=== PATIENT | female | born 1950 | race Native Hawaiian/Other Pacific Islander ===

== ENCOUNTER 2017-03-21 09:46 | Inpatient (IN) | payer BC, MEDICARE ==
[2017-03-21] MEDS ORDERED: Sodium Chloride 0.9% 500 ML IV ONE ×2 (09:56→10:01)
[2017-03-21 10:17] LABS: BASO % 0.3 % (0.0-2.0); HEMATOCRIT 41.6 % (34.0-47.0); LYMPH # 0.6 K/uL (1.0-4.3); LYMPH % 5.7 % (20.0-40.0); MEAN CELL VOLUME 88.8 fL (81.0-99.0); MEAN CORPUSCULAR HGB CONC 33.8 g/dL (33.0-37.0); MONO # 0.2 K/uL (0.0-0.8); MONO % 2.2 % (0.0-10.0); PLATELET COUNT 213 K/uL (130-400); RED CELL DISTRIBUTION WIDTH 12.9 % (11.5-14.5); WHITE BLOOD COUNT 10.2 K/uL (4.8-10.8)
[2017-03-21 10:26] LABS: CHLORIDE 102 mmol/L (98-107); POTASSIUM 3.5 mmol/L (3.6-5.2); SODIUM 137 mmol/L (132-148)
[2017-03-21 10:28] LABS: ALB/GLOB RATIO 1.5 (1.0-2.1); ALKALINE PHOSPHATASE 95 U/L (38-126); AST/SGOT 24 U/L (14-36); BILIRUBIN,TOTAL 1.2 mg/dL (0.2-1.3); BLOOD UREA NITROGEN 10 mg/dL (7-17); CARBON DIOXIDE 21 mmol/L (22-30); GFR AFRICAN-AMERICAN > 60; TOTAL PROTEIN 7.3 g/dL (6.3-8.3)
[2017-03-21 10:29] LABS: ALT/SGPT 27 U/L (9-52); CALCIUM 9.2 mg/dl (8.6-10.4); GLUCOSE,RANDOM 123 mg/dL (65-105); MAGNESIUM 1.9 mg/dL (1.6-2.3); PHOSPHOROUS 2.6 mg/dL (2.5-4.5)
--- NOTE | 2017-03-21 10:34 | C.PDOC ---
History Of Present Illness 67 y/o female presents to ED with c/o generalized epigastric abdominal pain for 3 days. Patient reports that pain has been intermittent, comes and goes, but notes persistent pain since last night. As per triage, patient notes that pain is so sever that she becomes dizzy. Denies chest pain or SOB. Patient also reports vomiting and constipation, with no bowel movement for 2 days. Patient denies fever, chills, urinary symptoms, or other associated symptoms. Time Seen by Provider: 03/21/17 09:51 Chief Complaint (Nursing): Abdominal Pain History Per: Patient History/Exam Limitations: no limitations Onset/Duration Of Symptoms: Days, Persistent Current Symptoms Are (Timing): Still Present Location Of Pain/Discomfort: Epigastric Radiation Of Pain To:: None Quality Of Discomfort: "Pain" Associated Symptoms: Vomiting. denies: Fever, Chills, Diarrhea, Urinary Symptoms Recent travel outside of the [place]: No Abnormal Vaginal Bleeding: No Past Medical History Reviewed: Historical Data, Nursing Documentation, Vital Signs Vital Signs: Last Vital Signs Temp 98.7 F 03/21/17 12:44 Pulse 67 03/21/17 12:44 Resp 18 03/21/17 12:44 BP 149/67 03/21/17 12:44 Pulse Ox 100 03/21/17 12:44 - Medical History PMH: No Chronic Diseases Family History: States: Unknown Family Hx - Social History Hx Alcohol Use: No Hx Substance Use: No - Immunization History Hx Tetanus Toxoid Vaccination: No Hx Influenza Vaccination: No Hx Pneumococcal Vaccination: No Review Of Systems Except As Marked, All Systems Reviewed And Found Negative. Constitutional: Negative for: Fever, Chills Cardiovascular: Negative for: Chest Pain Respiratory: Negative for: Cough, Shortness of Breath, Wheezing Gastrointestinal: Positive for: Vomiting, Abdominal Pain, Constipation Genitourinary: Negative for: Dysuria, Hematuria Skin: Negative for: Rash Neurological: Negative for: Headache, Dizziness Physical Exam - Physical Exam Appears: Non-toxic, No Acute Distress Skin: Warm, Dry Head: Atraumatic, Normacephalic Oral Mucosa: Moist Chest: Symmetrical Cardiovascular: Rhythm Regular Respiratory: Normal Breath Sounds, No Rales, No Rhonchi, No Wheezing Gastrointestinal/Abdominal: Soft, Tenderness (left sided, scant), No Guarding, No Rebound Back: Normal Inspection, No CVA Tenderness Extremity: Normal ROM, Capillary Refill (< 2 sec.) Neurological/Psych: Oriented x3, Normal Speech, Normal Cognition ED Course And Treatment - Laboratory Results Result Diagrams: 03/21/17 10:14 03/21/17 10:14 ECG: Interpreted By Me ECG Rhythm: Sinus Rhythm Rate From EC (bpm) O2 Sat by Pulse Oximetry: 100 (RA) Pulse Ox Interpretation: Normal Medical Decision Making Medical Decision Making: CT abdomen/pelvis, EKG, labs ordered and reviewed. 1:07PM Ct shows "Ubdvrw-yu-lbzhbvbjyv dilated small bowel loops. Dilated small bowel loop at the right lower abdomen/right pelvis demonstrates feces sign. Findings suspicious for bowel obstruction. Differential diagnosis includes bowel ileus. No evidence of pneumatosis intestinalis. Trace of free fluid at the right abdomen. No CT evidence of cholecystitis pancreatitis or appendicitis." General surgery paged. Will admit to hospitalist (BHAVNA Bradley) for SBO vs ileus with gen sx on consult. Patient NPO. Disposition - Disposition Disposition: HOSPITALIZED Disposition Time: 13:08 Condition: FAIR - Clinical Impression Clinical Impression: SBO (small bowel obstruction) - Scribe Statement The provider has reviewed the documentation as recorded by the Scribe SM All medical record entries made by the Scribe were at my direction and personally dictated by me. I have reviewed the chart and agree that the record accurately reflects my personal performance of the history, physical exam, medical decision making, and the department course for this patient. I have also personally directed, reviewed, and agree with the discharge instructions and disposition.
[2017-03-21 10:50] LABS: NEUTROPHIL 94 % (50-75); TOTAL CELLS COUNTED 100
[2017-03-21] MEDS ORDERED: Iodixanol 320 MG/ML 100 ML BOTTLE IV ONE ×2 (11:33→11:43)
--- NOTE | 2017-03-21 12:26 | CT ---
PROCEDURE: CT Abdomen and Pelvis with contrast HISTORY: L abdominal pain, constipated and vomiting COMPARISON: None. TECHNIQUE: Contrast dose: 100 mL Visipaque 320. Axial and reformatted coronal and sagittal CT images of the abdomen and pelvis were obtained after IV contrast administration. No oral contrast was given. Radiation dose: Total exam DLP = 251.79 mGy-cm. This CT exam was performed using one or more of the following dose reduction techniques: Automated exposure control, adjustment of the mA and/or kV according to patient size, and/or use of iterative reconstruction technique. FINDINGS: LOWER THORAX: Unremarkable. LIVER: Unremarkable. No gross lesion or ductal dilatation. GALLBLADDER AND BILE DUCTS: Unremarkable. PANCREAS: Unremarkable. No gross lesion or ductal dilatation. SPLEEN: Unremarkable. ADRENALS: Unremarkable. No mass. KIDNEYS AND URETERS: Unremarkable. No hydronephrosis. No solid mass. VASCULATURE: Unremarkable. No aortic aneurysm. BOWEL: There are jafpvz-ip-ztmznodbnq dilated small-bowel loops in the abdomen and pelvis. There is moderately dilated small bowel loop at the right lower abdomen/ right pelvis demonstrate feces sign. The descending and sigmoid colon are partially collapse. Findings may represent bowel obstruction versus less likely bowel ileus. The stomach is not distended. No evidence of pneumatosis intestinalis. APPENDIX: The appendix is visualized. No definite CT evidence of appendicitis. PERITONEUM: There is a trace amount of free fluid in the right abdomen. No evidence of free air. LYMPH NODES: Unremarkable. No enlarged lymph nodes. BLADDER: Unremarkable. REPRODUCTIVE: Unremarkable. BONES: No acute fracture. OTHER FINDINGS: None. IMPRESSION: Fabuma-fl-yroavkcobe dilated small bowel loops. Dilated small bowel loop at the right lower abdomen/right pelvis demonstrates feces sign. Findings suspicious for bowel obstruction. Differential diagnosis includes bowel ileus. No evidence of pneumatosis intestinalis. Trace of free fluid at the right abdomen. No CT evidence of cholecystitis pancreatitis or appendicitis.
[2017-03-21] MEDS ORDERED: Sodium Chloride 0.9% 1,000 ML IV SCH (12:45)
[2017-03-21] MEDS ORDERED: Sodium Chloride 0.9% 1,000 ML ONE (12:49)
[2017-03-21] MEDS ORDERED: HYDROmorphone 0.5 mg/0.5 ml ISec IVP PRN (13:43)
--- NOTE | 2017-03-21 14:07 | CP.PCM.HP ---
History of Present Illness - History of Present Illness History of Present Illness: HPI: Patient is a 67 y/o female with PMH of unspecified autoimmune disease. Patient is c/o abdominal pressure and bloating that started a week ago. Patient says it was bearable until last night when it progressively worsened and became painful. Patient describes this pain as crampy and located in the epigastric area. She says the pain has started to travel down lower involving the periumbilical and lower quadrants as well. Patient rates this pain as 6 out of 10 at its worst but currently has no pain. She thinks the pain has subsided because of the toradol she received in the ED. Patient says the pain was so bad this morning that she felt like she could not walk so she called for an ambulance. Patient says laying down flat makes the pain worse but nothing has made it better until now. She admits to associated nausea and vomiting. Patient says she has vomited 3-4x and describes it as a dark chocolate colored fluid without food. Patieint says she has had an appetite but she has been unable to keep food or liquids down. She says she usually has regular bowel movements but has not had a BM in 2 days. Patient also admits to what she thinks is a low grade fever. She says her temperature at home was 99.5 and she was having chills. Patient admits to associated diaphoresis, weakness, dizziness, and SOB. She denies headache, changes in vision/hearing, sore throat , dysphagia, chest pain, palpitations, cough, hematemesis, diarrhea, hematochezia, dyuria, frequency, leg pain/swelling, back pain, recent travel/ illness/sick contacts, and change in weight. PMH: unspecified autoimmune disease Meds: Multivitamin PSH: colonoscopy Allergies: PCN (reaction: palpitations), seasonal FamHx: HTN (father), colon cancer (paternal aunt) SocHx: * Denies tobacco, alcohol, or drug use * Lives at home * Retired computer education teacher for [employer] * Full code * Health care proxy: Ciarra Greenberg (sister); [phone] Present on Admission - Present on Admission Any Indicators Present on Admission: No Review of Systems - Review of Systems All systems: reviewed and no additional remarkable complaints except (as per HPI ) Past Patient History - Past Social History Smoking Status: Never Smoked - PSYCHIATRIC Hx Substance Use: No - SURGICAL HISTORY Hx Surgeries: No - ANESTHESIA Hx Anesthesia: No Meds Allergies/Adverse Reactions: Allergies Allergy/AdvReac Type Severity Reaction Status Date / Time Penicillins Allergy SHORTNESS Verified 03/21/17 09:53 OF BREATH Physical Exam - Constitutional Appears: Non-toxic, No Acute Distress - Head Exam Head Exam: ATRAUMATIC, NORMAL INSPECTION - Eye Exam Eye Exam: EOMI, Normal appearance - ENT Exam ENT Exam: Mucous Membranes Moist, Normal Oropharynx - Neck Exam Neck exam: Negative for: Lymphadenopathy, Tenderness - Respiratory Exam Respiratory Exam: Clear to Auscultation Bilateral, NORMAL BREATHING PATTERN. absent: Accessory Muscle Use, Rales, Rhonchi, Wheezes, Respiratory Distress - Cardiovascular Exam Cardiovascular Exam: REGULAR RHYTHM, +S1, +S2. absent: Bradycardia, Tachycardia , Rubs, Systolic Murmur - GI/Abdominal Exam GI & Abdominal Exam: Hypoactive Bowel Sounds (b/l upper quadrant), Soft, Tenderness (LLQ ). absent: Distended, Guarding, Organomegaly, Rebound - Extremities Exam Extremities exam: Positive for: normal capillary refill, normal inspection, pedal pulses present. Negative for: pedal edema, tenderness Additional comments: Lateral deviation of b/l great toes at the MTP joint Abrasion of left LE anteriorly (2/2 recent fall) - Back Exam Back exam: NORMAL INSPECTION. absent: paraspinal tenderness, rash noted, vertebral tenderness - Neurological Exam Neurological exam: Alert, Oriented x3 - Psychiatric Exam Psychiatric exam: Normal Affect, Normal Mood - Skin Skin Exam: Abrasion (LLE as stated above ), Dry, Intact, Normal Color, Warm Results - Vital Signs Recent Vital Signs: Last Vital Signs Temp 98.7 F 03/21/17 12:44 Pulse 67 03/21/17 12:44 Resp 18 03/21/17 12:44 BP 149/67 03/21/17 12:44 Pulse Ox 100 03/21/17 13:08 - Labs Result Diagrams: 03/21/17 10:14 03/21/17 10:14 Labs: Laboratory Results - last 24 hr 03/21/17 03/21/17 10:14 10:14 WBC 10.2 RBC 4.69 Hgb 14.0 Hct 41.6 MCV 88.8 D MCH 30.0 MCHC 33.8 RDW 12.9 Plt Count 213 MPV 9.0 Neut % (Auto) 91.8 H Lymph % (Auto) 5.7 L Talbot % (Auto) 2.2 Eos % (Auto) 0.0 Baso % (Auto) 0.3 Neut # 9.3 H Lymph # 0.6 L Talbot # 0.2 Eos # 0.0 Baso # 0.0 Neutrophils % (Manual) 94 H Lymphocytes % (Manual) 6 L Monocytes % (Manual) TEST NOT PERFORMED Platelet Estimate Normal RBC Morphology Normal Sodium 137 Potassium 3.5 L Chloride 102 Carbon Dioxide 21 L Anion Gap 18 BUN 10 Creatinine 0.5 L Est GFR ( Amer) > 60 Est GFR (Non-Af Amer) > 60 Random Glucose 123 H Calcium 9.2 Phosphorus 2.6 Magnesium 1.9 Total Bilirubin 1.2 AST 24 ALT 27 Alkaline Phosphatase 95 Total Protein 7.3 Albumin 4.4 Globulin 2.9 Albumin/Globulin Ratio 1.5 Lipase 79 Assessment & Plan - Assessment and Plan (Free Text) Assessment: Abdominal pain * CT abdomen and pelvis: mild/moderate dilated loops of small bowel, trace free fluid in right abdomen; SBO vs ileus * Surgery consulted (Dr. Aviles) - recs appreciated * NPO until passes flatus * No surgical intervention or NG tube needed at this time * f/u procal * GI consulted (Scot) - recs appreciated * NS + KCl 40 mEq @ 100/hr * f/u potassium in AM (3.5 upon admission) * Dilaudid 0.5 mg PRN severe pain * Toradol 30 mg PRN moderate pain * Lipase: 79 Hx unspecified autoimmune disease * followed by PMD (Dr. Javy Bradley) PPX * DVT risk score: 1 * SCDs * Hold heparin * Protonix 40 mg IV QD
--- NOTE | 2017-03-21 18:04 | CP.PCM.CON ---
<Je Beckham - Last Filed: 03/21/17 17:56> History of Present Illness - History of Present Illness History of Present Illness: General Surgery: Dr Aviles Patient is 67F w/ no significant PMH. Pt presents to ED with 24 hours of diffuse abdominal pain accompanied by nausea and vomiting. Pt reports pain started yesterday afternoon, mainly in bilateral upper quadrants. Since admission pain has resolved, and pt has not had emesis since yesterday. Reports has not had bowel movement for 2 days, but was passing flatus yesterday. CT read as SBO vs ileus PMH: unspecified autoimmune disease PSH: colonoscopy Allergies: PCN Review of Systems - Review of Systems All systems: reviewed and no additional remarkable complaints except (as per hpi ) - Constitutional Constitutional: absent: Chills, Weakness Past Patient History - Past Medical History & Family History Past Medical History?: No - Past Social History Smoking Status: Never Smoked - MUSCULOSKELETAL/RHEUMATOLOGICAL Hx Falls: No - PSYCHIATRIC Hx Substance Use: No - SURGICAL HISTORY Hx Surgeries: No - ANESTHESIA Hx Anesthesia: No Meds Allergies/Adverse Reactions: Allergies Allergy/AdvReac Type Severity Reaction Status Date / Time Penicillins Allergy SHORTNESS Verified 03/21/17 09:53 OF BREATH - Medications Medications: Current Medications Hydromorphone HCl (Dilaudid) 0.5 mg IVP Q4H PRN PRN Reason: Pain, moderate (4-7) Potassium Chloride 40 meq/ (Sodium Chloride) 1,020 mls @ 100 mls/hr IV .[id number] NINFA Metronidazole (Flagyl) 500 mg in 100 mls @ 100 mls/hr IVPB Q8H NINFA Ciprofloxacin (Cipro 400mg/200ml Dsw) 400 mg in 200 mls @ 133 mls/hr IVPB Q12H NINFA Ketorolac Tromethamine (Toradol) 30 mg IVP Q6 PRN PRN Reason: Pain, moderate (4-7) Ketorolac Tromethamine (Toradol) 15 mg IVP Q6 PRN PRN Reason: Pain, Mild (1-3) Ondansetron HCl (Zofran Inj) 4 mg IVP Q6 PRN PRN Reason: Nausea/Vomiting Pantoprazole Sodium (Protonix Inj) 40 mg IVP DAILY NINFA Physical Exam - Constitutional Appears: Non-toxic, No Acute Distress - Eye Exam Eye Exam: Normal appearance - ENT Exam ENT Exam: Mucous Membranes Moist - Respiratory Exam Respiratory Exam: absent: Accessory Muscle Use, Respiratory Distress - Cardiovascular Exam Cardiovascular Exam: REGULAR RHYTHM. absent: Tachycardia - GI/Abdominal Exam GI & Abdominal Exam: Normal Bowel Sounds, Soft. absent: Distended, Firm, Guarding, Hernia, Tenderness - Extremities Exam Extremities exam: Negative for: pedal edema - Neurological Exam Neurological exam: Alert, Oriented x3 - Psychiatric Exam Psychiatric exam: Normal Affect, Normal Mood - Skin Skin Exam: Normal Color Results - Vital Signs Recent Vital Signs: Last Vital Signs Temp 98.7 F 03/21/17 15:00 Pulse 89 03/21/17 15:00 Resp 20 03/21/17 15:24 BP 152/73 H 03/21/17 15:00 Pulse Ox 97 03/21/17 15:00 - Labs Result Diagrams: 03/21/17 10:14 03/21/17 10:14 Labs: Laboratory Results - last 24 hr 03/21/17 03/21/17 03/21/17 10:14 10:14 16:50 WBC 10.2 RBC 4.69 Hgb 14.0 Hct 41.6 MCV 88.8 D MCH 30.0 MCHC 33.8 RDW 12.9 Plt Count 213 MPV 9.0 Neut % (Auto) 91.8 H Lymph % (Auto) 5.7 L Person % (Auto) 2.2 Eos % (Auto) 0.0 Baso % (Auto) 0.3 Neut # 9.3 H Lymph # 0.6 L Person # 0.2 Eos # 0.0 Baso # 0.0 Neutrophils % (Manual) 94 H Lymphocytes % (Manual) 6 L Monocytes % (Manual) TEST NOT PERFORMED Platelet Estimate Normal RBC Morphology Normal Sodium 137 Potassium 3.5 L Chloride 102 Carbon Dioxide 21 L Anion Gap 18 BUN 10 Creatinine 0.5 L Est GFR ( Amer) > 60 Est GFR (Non-Af Amer) > 60 Random Glucose 123 H Calcium 9.2 Phosphorus 2.6 Magnesium 1.9 Total Bilirubin 1.2 AST 24 ALT 27 Alkaline Phosphatase 95 Total Protein 7.3 Albumin 4.4 Globulin 2.9 Albumin/Globulin Ratio 1.5 Lipase 79 Procalcitonin < 0.05 L Assessment & Plan - Assessment and Plan (Free Text) Assessment: 67F admitted for abdominal pain and SBO; resolving Plan: NPo IV fluids abx no NGT needed, will place if vomits await flatus then start CLD d/w Dr Traci Beckham, PGY3 <Mannie Aviles - Last Filed: 03/21/17 21:20> Meds - Medications Medications: Current Medications Hydromorphone HCl (Dilaudid) 0.5 mg IVP Q4H PRN PRN Reason: Pain, moderate (4-7) Potassium Chloride 40 meq/ (Sodium Chloride) 1,020 mls @ 100 mls/hr IV .[id number] [facility] TO [facility] Last Admin: 03/21/17 15:00 Dose: 100 mls/hr Metronidazole (Flagyl) 500 mg in 100 mls @ 100 mls/hr IVPB Q8H [facility] Last Admin: 03/21/17 19:03 Dose: 100 mls/hr Ciprofloxacin (Cipro 400mg/200ml Dsw) 400 mg in 200 mls @ 133 mls/hr IVPB Q12H [facility] Last Admin: 03/21/17 20:21 Dose: 133 mls/hr Ketorolac Tromethamine (Toradol) 30 mg IVP Q6 PRN PRN Reason: Pain, moderate (4-7) Ketorolac Tromethamine (Toradol) 15 mg IVP Q6 PRN PRN Reason: Pain, Mild (1-3) Ondansetron HCl (Zofran Inj) 4 mg IVP Q6 PRN PRN Reason: Nausea/Vomiting Pantoprazole Sodium (Protonix Inj) 40 mg IVP DAILY [facility] Results - Vital Signs Recent Vital Signs: Last Vital Signs Temp 98.7 F 03/21/17 15:00 Pulse 89 03/21/17 15:00 Resp 20 03/21/17 15:24 BP 152/73 H 03/21/17 15:00 Pulse Ox 97 03/21/17 15:00 - Labs Result Diagrams: 03/21/17 10:14 03/21/17 10:14 Labs: Laboratory Results - last 24 hr 03/21/17 03/21/17 03/21/17 10:14 10:14 16:50 WBC 10.2 RBC 4.69 Hgb 14.0 Hct 41.6 MCV 88.8 D MCH 30.0 MCHC 33.8 RDW 12.9 Plt Count 213 MPV 9.0 Neut % (Auto) 91.8 H Lymph % (Auto) 5.7 L Person % (Auto) 2.2 Eos % (Auto) 0.0 Baso % (Auto) 0.3 Neut # 9.3 H Lymph # 0.6 L Person # 0.2 Eos # 0.0 Baso # 0.0 Neutrophils % (Manual) 94 H Lymphocytes % (Manual) 6 L Monocytes % (Manual) TEST NOT PERFORMED Platelet Estimate Normal RBC Morphology Normal Sodium 137 Potassium 3.5 L Chloride 102 Carbon Dioxide 21 L Anion Gap 18 BUN 10 Creatinine 0.5 L Est GFR ( Amer) > 60 Est GFR (Non-Af Amer) > 60 Random Glucose 123 H Calcium 9.2 Phosphorus 2.6 Magnesium 1.9 Total Bilirubin 1.2 AST 24 ALT 27 Alkaline Phosphatase 95 Total Protein 7.3 Albumin 4.4 Globulin 2.9 Albumin/Globulin Ratio 1.5 Lipase 79 Procalcitonin < 0.05 L Attending/Attestation - Attestation I have personally seen and examined this patient.: Yes I have fully participated in the care of the patient.: Yes I have reviewed all pertinent clinical information: Yes Notes (Text): 03/21/17 21:17 Pt was seen and examined at bedside Agree with above note and assessment Pt with SBO most likely due to Enteritis Mid abdominal tenderness Labs and Radiology reviewed Start IV antibiotics Sips of clearas Serial abdominal exam We will f.u. Plan d.w pt in detail Risk and benefit explained in detail.
[2017-03-21] MEDS ORDERED: Ciprofloxacin 400mg/200ml D5W 400 MG/200 ML BAG IVPB SCH (18:30)
[2017-03-21] MEDS: metroNIDAZOLE IV 500 mg/100 ml 500 MG/100 ML BAG IVPB SCH (19:03)
--- NOTE | 2017-03-21 19:25 | CP.PCM.CON ---
History of Present Illness - History of Present Illness History of Present Illness: This is a 67 year old woman with abdominal pain. Patient states that she developed upper abdominal bloating/discomfort four or five days prior to admission. The bloating did not change or worsen until the day prior to admission, when the sensation became painful, described as "cramping and pressure" and constant. She was nauseated and vomited four times , each time after trying to eat or drink something.. She carson reports sweating profusely, but her temperature was only 99.5 degrees F. She denies having heartburn, difficulty swallowing, recent loss of appetite or loss of weight. Her last bowel movement was two days ago and was normal. She has not had constipation or rectal bleeding in the recent past. Her last colonoscopy was eight years ago and was normal. In the ER, CT scan was performed and showed dilated loops of small bowel suspicious for obstruction. Review of Systems - Constitutional Constitutional: Night Sweats. absent: Chills, Fever - Cardiovascular Cardiovascular: absent: Chest Pain - Respiratory Respiratory: absent: Cough, Dyspnea, Wheezing - Gastrointestinal Gastrointestinal: Abdominal Pain, Nausea, Vomiting. absent: Diarrhea, Dysphagia , Heartburn, Hematochezia - Genitourinary Genitourinary: absent: Dysuria, Hematuria - Integumentary Integumentary: absent: Rash - Neurological Neurological: absent: Dizziness, Headaches Past Patient History - Past Medical History & Family History Past Medical History?: No - Past Social History Smoking Status: Never Smoked - MUSCULOSKELETAL/RHEUMATOLOGICAL Hx Falls: No - PSYCHIATRIC Hx Substance Use: No - SURGICAL HISTORY Hx Surgeries: No - ANESTHESIA Hx Anesthesia: No Meds Allergies/Adverse Reactions: Allergies Allergy/AdvReac Type Severity Reaction Status Date / Time Penicillins Allergy SHORTNESS Verified 03/21/17 09:53 OF BREATH - Medications Medications: Current Medications Hydromorphone HCl (Dilaudid) 0.5 mg IVP Q4H PRN PRN Reason: Pain, moderate (4-7) Potassium Chloride 40 meq/ (Sodium Chloride) 1,020 mls @ 100 mls/hr IV .[id number] [facility] [place] Last Admin: 03/21/17 15:00 Dose: 100 mls/hr Metronidazole (Flagyl) 500 mg in 100 mls @ 100 mls/hr IVPB Q8H [facility] [place] Last Admin: 03/21/17 19:03 Dose: 100 mls/hr Ciprofloxacin (Cipro 400mg/200ml Dsw) 400 mg in 200 mls @ 133 mls/hr IVPB Q12H [facility] [place] Ketorolac Tromethamine (Toradol) 30 mg IVP Q6 PRN PRN Reason: Pain, moderate (4-7) Ketorolac Tromethamine (Toradol) 15 mg IVP Q6 PRN PRN Reason: Pain, Mild (1-3) Ondansetron HCl (Zofran Inj) 4 mg IVP Q6 PRN PRN Reason: Nausea/Vomiting Pantoprazole Sodium (Protonix Inj) 40 mg IVP DAILY [facility] [place] Physical Exam - Head Exam Head Exam: ATRAUMATIC, NORMOCEPHALIC - Eye Exam Eye Exam: EOMI, PERRL - Neck Exam Neck exam: Negative for: Lymphadenopathy, Thyromegaly - Respiratory Exam Respiratory Exam: absent: Rales, Rhonchi, Wheezes, NORMAL BREATHING PATTERN - Cardiovascular Exam Cardiovascular Exam: REGULAR RHYTHM, +S1, +S2. absent: Gallop, Rubs, Systolic Murmur - GI/Abdominal Exam GI & Abdominal Exam: Normal Bowel Sounds, Soft, Tenderness. absent: Mass, Organomegaly - Rectal Exam Rectal Exam: Deferred Additional comments: Mild tenderness to direct palpation in LLQ without rebound or guarding - Extremities Exam Extremities exam: Negative for: calf tenderness, pedal edema Results - Vital Signs Recent Vital Signs: Last Vital Signs Temp 98.7 F 03/21/17 15:00 Pulse 89 03/21/17 15:00 Resp 20 03/21/17 15:24 BP 152/73 H 03/21/17 15:00 Pulse Ox 97 03/21/17 15:00 - Labs Result Diagrams: 03/21/17 10:14 03/21/17 10:14 Labs: Laboratory Results - last 24 hr 03/21/17 03/21/17 03/21/17 10:14 10:14 16:50 WBC 10.2 RBC 4.69 Hgb 14.0 Hct 41.6 MCV 88.8 D MCH 30.0 MCHC 33.8 RDW 12.9 Plt Count 213 MPV 9.0 Neut % (Auto) 91.8 H Lymph % (Auto) 5.7 L Ross % (Auto) 2.2 Eos % (Auto) 0.0 Baso % (Auto) 0.3 Neut # 9.3 H Lymph # 0.6 L Ross # 0.2 Eos # 0.0 Baso # 0.0 Neutrophils % (Manual) 94 H Lymphocytes % (Manual) 6 L Monocytes % (Manual) TEST NOT PERFORMED Platelet Estimate Normal RBC Morphology Normal Sodium 137 Potassium 3.5 L Chloride 102 Carbon Dioxide 21 L Anion Gap 18 BUN 10 Creatinine 0.5 L Est GFR ( Amer) > 60 Est GFR (Non-Af Amer) > 60 Random Glucose 123 H Calcium 9.2 Phosphorus 2.6 Magnesium 1.9 Total Bilirubin 1.2 AST 24 ALT 27 Alkaline Phosphatase 95 Total Protein 7.3 Albumin 4.4 Globulin 2.9 Albumin/Globulin Ratio 1.5 Lipase 79 Procalcitonin < 0.05 L Assessment & Plan (1) Abdominal pain Assessment and Plan: Patient presents with abdominal pain, CT consistent with SBO but no history of abdominal surgery and no obvious hernias. Will check obstructive series in AM. Consider CT enterography or CT with oral contrast. Status: Acute
[2017-03-21] MEDS: Ciprofloxacin 400mg/200ml D5W 400 MG/200 ML BAG IVPB SCH (20:21)
--- NOTE | 2017-03-22 01:11 | CARD ---
APPROVED REPORT EKG Measurement Heart [id number] <Conclusion> Normal sinus rhythm Possible Left atrial enlargement Borderline ECG
[2017-03-22] MEDS: metroNIDAZOLE IV 500 mg/100 ml 500 MG/100 ML BAG IVPB SCH ×3 (02:31→17:39)
[2017-03-22 08:04] LABS: BASO % 0.3 % (0.0-2.0); EOS % 0.6 % (0.0-4.0); HEMATOCRIT 36.7 % (34.0-47.0); LYMPH # 0.9 K/uL (1.0-4.3); LYMPH % 13.4 % (20.0-40.0); MEAN CELL VOLUME 90.4 fL (81.0-99.0); MEAN CORPUSCULAR HEMOGLOBIN 30.9 pg (27.0-31.0); MEAN CORPUSCULAR HGB CONC 34.2 g/dL (33.0-37.0); MEAN PLATELET VOLUME 9.5 fL (7.2-11.7); MONO # 0.5 K/uL (0.0-0.8); MONO % 8.4 % (0.0-10.0); RED CELL DISTRIBUTION WIDTH 13.4 % (11.5-14.5); WHITE BLOOD COUNT 6.3 K/uL (4.8-10.8)
[2017-03-22 08:21] LABS: CHLORIDE 107 mmol/L (98-107); POTASSIUM 4.5 mmol/L (3.6-5.2); SODIUM 142 mmol/L (132-148)
[2017-03-22 08:23] LABS: GFR AFRICAN-AMERICAN > 60
[2017-03-22 08:24] LABS: ALKALINE PHOSPHATASE 70 U/L (38-126); ALT/SGPT 28 U/L (9-52); AST/SGOT 25 U/L (14-36); BILIRUBIN,TOTAL 1.2 mg/dL (0.2-1.3); BLOOD UREA NITROGEN 10 mg/dL (7-17); CALCIUM 8.7 mg/dl (8.6-10.4); CARBON DIOXIDE 26 mmol/L (22-30); GLUCOSE,RANDOM 85 mg/dL (65-105); TOTAL PROTEIN 5.9 g/dL (6.3-8.3)
[2017-03-22 08:37] LABS: ALB/GLOB RATIO 1.3 (1.0-2.1)
[2017-03-22] MEDS: Ciprofloxacin 400mg/200ml D5W 400 MG/200 ML BAG IVPB SCH ×2 (08:50→19:35)
--- NOTE | 2017-03-22 13:31 | CP.PCM.PN ---
<Kasia Green - Last Filed: 03/22/17 18:22> Subjective - Date & Time of Evaluation Date of Evaluation: 03/22/17 Time of Evaluation: 13:28 - Subjective Subjective: Patient seen and examined at bedside. Patient doing well today with no new complaints at this time. Patient says her abdominal cramping has come back today but is not as bad as it was before. She rates it as a 4 or 5 out of 10. Patient says the pain is intermittent and will last about 3-4 minutes then go away. She says this happens about 2-3x/hour. Patient says she passed flatus this morning but has not had a bowel movement yet. Patient says she thought the GI doctor told he she would get an xray of her abdomen this morning but says she has not had one yet. Patient denies fever, chills, vomiting, chest pain, SOB , and extremity pain/swelling. Objective - Vital Signs/Intake and Output Vital Signs (last 24 hours): Temp Pulse Resp BP Pulse Ox 98.6 F 66 20 161/75 H 97 03/22/17 00:00 03/22/17 00:00 03/22/17 00:00 03/22/17 00:00 03/22/17 00:00 Intake and Output: 03/22/17 03/22/17 06:59 18:59 Intake Total 800 Balance 800 - Medications Medications: Current Medications Hydromorphone HCl (Dilaudid) 0.5 mg IVP Q4H PRN PRN Reason: Pain, moderate (4-7) Potassium Chloride 40 meq/ (Sodium Chloride) 1,020 mls @ 100 mls/hr IV .[id number] [facility] Last Admin: 03/22/17 11:57 Dose: Not Given Metronidazole (Flagyl) 500 mg in 100 mls @ 100 mls/hr IVPB Q8H [facility] Last Admin: 03/22/17 10:43 Dose: 100 mls/hr Ciprofloxacin (Cipro 400mg/200ml Dsw) 400 mg in 200 mls @ 133 mls/hr IVPB Q12H [facility] Last Admin: 03/22/17 08:50 Dose: 133 mls/hr Ketorolac Tromethamine (Toradol) 30 mg IVP Q6 PRN PRN Reason: Pain, moderate (4-7) Ketorolac Tromethamine (Toradol) 15 mg IVP Q6 PRN PRN Reason: Pain, Mild (1-3) Ondansetron HCl (Zofran Inj) 4 mg IVP Q6 PRN PRN Reason: Nausea/Vomiting Pantoprazole Sodium (Protonix Inj) 40 mg IVP DAILY [facility] Last Admin: 03/22/17 08:59 Dose: 40 mg - Labs Labs: 03/22/17 07:50 03/22/17 07:50 - Additional Findings Additional findings: - Constitutional Appears: Non-toxic, No Acute Distress - Head Exam Head Exam: ATRAUMATIC, NORMAL INSPECTION - Eye Exam Eye Exam: EOMI, Normal appearance - ENT Exam ENT Exam: Mucous Membranes Moist, Normal Oropharynx - Neck Exam Neck exam: Negative for: Lymphadenopathy, Tenderness - Respiratory Exam Respiratory Exam: Clear to Auscultation Bilateral, NORMAL BREATHING PATTERN. absent: Accessory Muscle Use, Rales, Rhonchi, Wheezes, Respiratory Distress - Cardiovascular Exam Cardiovascular Exam: REGULAR RHYTHM, +S1, +S2. absent: Bradycardia, Tachycardia , Rubs, Systolic Murmur - GI/Abdominal Exam GI & Abdominal Exam: Normal active bowel Sounds, Soft, Tenderness (LLQ ). absent: Distended, Guarding, Organomegaly, Rebound - Extremities Exam Extremities exam: Positive for: normal capillary refill, normal inspection, pedal pulses present. Negative for: pedal edema, tenderness Additional comments: Lateral deviation of b/l great toes at the MTP joint Abrasion of left LE anteriorly (2/2 recent fall) - Back Exam Back exam: NORMAL INSPECTION. absent: paraspinal tenderness, rash noted, vertebral tenderness - Neurological Exam Neurological exam: Alert, Oriented x3 - Psychiatric Exam Psychiatric exam: Normal Affect, Normal Mood - Skin Skin Exam: Abrasion (LLE as stated above ), Dry, Intact, Normal Color, Warm Assessment and Plan - Assessment and Plan (Free Text) Assessment: Abdominal pain * CT abdomen and pelvis: mild/moderate dilated loops of small bowel, trace free fluid in right abdomen; SBO vs ileus * Surgery consulted (Dr. Aviles) - recs appreciated * Advance diet to clear liquid diet once patient passing flatus * No surgical intervention or NG tube needed at this time; will place NG tube if vomiting * procal: 0.05 * Likely SBO due to enteritis * Cipro 400 IV Q12 * Flagyl 500 mg IV Q8 * GI consulted ([facility]) - recs appreciated * consider obstructive series * consider CT enterography or CT with oral contrast * NS + KCl 40 mEq @ 100/hr * Potassium 3.5 upon admission; normalized to 4.5 on 03/22 * Dilaudid 0.5 mg PRN severe pain * Toradol 30 mg Q6 PRN moderate pain * Toradol 15 mg Q6 PRN mild pain * Lipase: 79 Hx unspecified autoimmune disease * followed by PMD (Dr. Javy Bradley) PPX * DVT risk score: 1 * SCDs * Hold heparin * Protonix 40 mg IV QD <Rashaun Bradley - Last Filed: 03/22/17 20:04> Objective - Vital Signs/Intake and Output Vital Signs (last 24 hours): Temp Pulse Resp BP Pulse Ox 98.6 F 64 20 138/71 99 03/22/17 15:00 03/22/17 15:00 03/22/17 15:00 03/22/17 15:00 03/22/17 15:00 - Medications Medications: Current Medications Hydromorphone HCl (Dilaudid) 0.5 mg IVP Q4H PRN PRN Reason: Pain, moderate (4-7) Potassium Chloride 40 meq/ (Sodium Chloride) 1,020 mls @ 100 mls/hr IV .[id number] [facility] Last Admin: 03/22/17 11:57 Dose: Not Given Metronidazole (Flagyl) 500 mg in 100 mls @ 100 mls/hr IVPB Q8H [facility] Last Admin: 03/22/17 17:39 Dose: 100 mls/hr Ciprofloxacin (Cipro 400mg/200ml Dsw) 400 mg in 200 mls @ 133 mls/hr IVPB Q12H [facility] Last Admin: 03/22/17 19:35 Dose: 133 mls/hr Ketorolac Tromethamine (Toradol) 30 mg IVP Q6 PRN PRN Reason: Pain, moderate (4-7) Ketorolac Tromethamine (Toradol) 15 mg IVP Q6 PRN PRN Reason: Pain, Mild (1-3) Ondansetron HCl (Zofran Inj) 4 mg IVP Q6 PRN PRN Reason: Nausea/Vomiting Pantoprazole Sodium (Protonix Inj) 40 mg IVP DAILY [facility] Last Admin: 03/22/17 08:59 Dose: 40 mg - Labs Labs: 03/22/17 07:50 03/22/17 07:50 Attending/Attestation - Attestation I have personally seen and examined this patient.: Yes I have fully participated in the care of the patient.: Yes I have reviewed all pertinent clinical information, including history, physical exam and plan: Yes Notes (Text): 03/22/17 20:03 Patient was seen and examined at 6 PM 03/22/17. Exam, assessment and plan were thoroughly gone over with the resident Patient is tolerating clear liquid diet. She is passing gas. Consider Obstruction Series if there is NO continued improvement. Rashaun Bradley D.O.
--- NOTE | 2017-03-22 13:35 | CP.PCM.PN ---
Subjective - Date & Time of Evaluation Date of Evaluation: 03/22/17 Time of Evaluation: 13:32 - Subjective Subjective: COVERING DR COREY Reports passing some flatus today. Still with discomfort but no N/V. No stool. Surgical consult pending. No further Xray done today per patient Objective - Vital Signs/Intake and Output Vital Signs (last 24 hours): Temp Pulse Resp BP Pulse Ox 98.6 F 66 20 161/75 H 97 03/22/17 00:00 03/22/17 00:00 03/22/17 00:00 03/22/17 00:00 03/22/17 00:00 Intake and Output: 03/22/17 03/22/17 06:59 18:59 Intake Total 800 Balance 800 - Medications Medications: Current Medications Hydromorphone HCl (Dilaudid) 0.5 mg IVP Q4H PRN PRN Reason: Pain, moderate (4-7) Potassium Chloride 40 meq/ (Sodium Chloride) 1,020 mls @ 100 mls/hr IV .[id number] [facility] Last Admin: 03/22/17 11:57 Dose: Not Given Metronidazole (Flagyl) 500 mg in 100 mls @ 100 mls/hr IVPB Q8H [facility] Last Admin: 03/22/17 10:43 Dose: 100 mls/hr Ciprofloxacin (Cipro 400mg/200ml Dsw) 400 mg in 200 mls @ 133 mls/hr IVPB Q12H [facility] Last Admin: 03/22/17 08:50 Dose: 133 mls/hr Ketorolac Tromethamine (Toradol) 30 mg IVP Q6 PRN PRN Reason: Pain, moderate (4-7) Ketorolac Tromethamine (Toradol) 15 mg IVP Q6 PRN PRN Reason: Pain, Mild (1-3) Ondansetron HCl (Zofran Inj) 4 mg IVP Q6 PRN PRN Reason: Nausea/Vomiting Pantoprazole Sodium (Protonix Inj) 40 mg IVP DAILY [facility] Last Admin: 03/22/17 08:59 Dose: 40 mg - Labs Labs: 03/22/17 07:50 03/22/17 07:50 - Head Exam Head Exam: NORMAL INSPECTION - Eye Exam Eye Exam: EOMI, PERRL - Respiratory Exam Respiratory Exam: NORMAL BREATHING PATTERN - Cardiovascular Exam Cardiovascular Exam: REGULAR RHYTHM - GI/Abdominal Exam GI & Abdominal Exam: Soft, Hyperactive Bowel Sounds. absent: Guarding, Rigid, Tenderness, Mass, Organomegaly, Rebound Assessment and Plan - Assessment and Plan (Free Text) Assessment: Abdominal pain associated with dilated loops of bowel on Xray yesterday r/o partial SBO, ileus Surgical consult pending Repeat KUB ordered Trial of clear liquids pending surgical evaluation.
--- NOTE | 2017-03-22 23:40 | CP.PCM.PN ---
<Jeniffer Hinkle - Last Filed: 03/22/17 23:38> Subjective - Date & Time of Evaluation Date of Evaluation: 03/22/17 Time of Evaluation: 07:00 - Subjective Subjective: GENERAL SURGERY PROGRESS NOTE FOR DR. AVILES Patient seen and examined at bedside. She reports that she passed some flatus. She has not had a bowel movement yet. She is hungry and denies nausea or vomiting. She reports some mild cramps in her lower abdomen that occur 2-3 times an hour and resolve after a couple minutes. Objective - Vital Signs/Intake and Output Vital Signs (last 24 hours): Temp Pulse Resp BP Pulse Ox 98.6 F 64 20 138/71 99 03/22/17 15:00 03/22/17 15:00 03/22/17 15:00 03/22/17 15:00 03/22/17 15:00 Intake and Output: 03/22/17 03/23/17 18:59 06:59 Intake Total 1300 Output Total 600 Balance 700 - Medications Medications: Current Medications Hydromorphone HCl (Dilaudid) 0.5 mg IVP Q4H PRN PRN Reason: Pain, moderate (4-7) Potassium Chloride 40 meq/ (Sodium Chloride) 1,020 mls @ 100 mls/hr IV .[id number] [facility] Last Admin: 03/22/17 22:06 Dose: 100 mls/hr Metronidazole (Flagyl) 500 mg in 100 mls @ 100 mls/hr IVPB Q8H [facility] Last Admin: 03/22/17 17:39 Dose: 100 mls/hr Ciprofloxacin (Cipro 400mg/200ml Dsw) 400 mg in 200 mls @ 133 mls/hr IVPB Q12H [facility] Last Admin: 03/22/17 19:35 Dose: 133 mls/hr Ketorolac Tromethamine (Toradol) 30 mg IVP Q6 PRN PRN Reason: Pain, moderate (4-7) Ketorolac Tromethamine (Toradol) 15 mg IVP Q6 PRN PRN Reason: Pain, Mild (1-3) Ondansetron HCl (Zofran Inj) 4 mg IVP Q6 PRN PRN Reason: Nausea/Vomiting Pantoprazole Sodium (Protonix Inj) 40 mg IVP DAILY [facility] Last Admin: 03/22/17 08:59 Dose: 40 mg - Labs Labs: 03/22/17 07:50 03/22/17 07:50 - Constitutional Appears: Non-toxic, No Acute Distress - Head Exam Head Exam: ATRAUMATIC, NORMAL INSPECTION - Eye Exam Eye Exam: EOMI, Normal appearance - Respiratory Exam Respiratory Exam: NORMAL BREATHING PATTERN. absent: Respiratory Distress - Cardiovascular Exam Cardiovascular Exam: +S1, +S2 - GI/Abdominal Exam GI & Abdominal Exam: Soft, Tenderness (very mild tenderness to lower abdomen). absent: Distended, Firm, Guarding, Rigid, Rebound - Neurological Exam Neurological Exam: Alert, Awake, Oriented x3 - Psychiatric Exam Psychiatric exam: Normal Affect, Normal Mood - Skin Skin Exam: Dry, Normal Color, Warm Assessment and Plan - Assessment and Plan (Free Text) Assessment: 67yo F with ileus vs partial SBO vs enteritis - Afebrile, VSS - Passed flatus - Advanced to full liquids - Will continue to monitor for bowel movement - Flat and upright X-ray ordered for tomorrow AM - Continue Abx - Discussed plan with Dr. Traci Hinkle PGY-3 <Mannie Aviles - Last Filed: 03/23/17 10:23> Objective - Vital Signs/Intake and Output Vital Signs (last 24 hours): Temp Pulse Resp BP Pulse Ox 98 F 59 L 21 154/78 H 100 03/23/17 08:00 03/23/17 08:00 03/23/17 08:00 03/23/17 08:00 03/23/17 08:00 Intake and Output: 03/23/17 03/23/17 06:59 18:59 Intake Total 2350 Output Total 1300 Balance 1050 - Medications Medications: Current Medications Docusate Sodium (Colace) 100 mg PO TID [facility] Last Admin: 03/23/17 09:53 Dose: 100 mg Hydromorphone HCl (Dilaudid) 0.5 mg IVP Q4H PRN PRN Reason: Pain, moderate (4-7) Potassium Chloride 40 meq/ (Sodium Chloride) 1,020 mls @ 100 mls/hr IV .[id number] [facility] Last Admin: 03/23/17 07:17 Dose: 100 mls/hr Metronidazole (Flagyl) 500 mg in 100 mls @ 100 mls/hr IVPB Q8H [facility] Last Admin: 03/23/17 09:53 Dose: 100 mls/hr Ciprofloxacin (Cipro 400mg/200ml Dsw) 400 mg in 200 mls @ 133 mls/hr IVPB Q12H [facility] Last Admin: 03/23/17 08:41 Dose: 133 mls/hr Ketorolac Tromethamine (Toradol) 30 mg IVP Q6 PRN PRN Reason: Pain, moderate (4-7) Ketorolac Tromethamine (Toradol) 15 mg IVP Q6 PRN PRN Reason: Pain, Mild (1-3) Ondansetron HCl (Zofran Inj) 4 mg IVP Q6 PRN PRN Reason: Nausea/Vomiting Pantoprazole Sodium (Protonix Inj) 40 mg IVP DAILY [facility] Last Admin: 03/23/17 09:53 Dose: 40 mg - Labs Labs: 03/23/17 07:25 03/23/17 07:25 Attending/Attestation - Attestation I have personally seen and examined this patient.: Yes I have fully participated in the care of the patient.: Yes I have reviewed all pertinent clinical information, including history, physical exam and plan: Yes Notes (Text): 03/23/17 10:22 Pt was seen and examined at bedside Agree with above note and assessment Pt with resolving SBO Abdomen: Soft, NT Full Liquid diet C.w IV antibiotics Plan d.w pt in detail Risk and benefit explained in detail.
[2017-03-23] MEDS: metroNIDAZOLE IV 500 mg/100 ml 500 MG/100 ML BAG IVPB SCH ×3 (03:00→17:41)
[2017-03-23 07:39] LABS: BASO % 0.6 % (0.0-2.0); EOS # 0.1 K/uL (0.0-0.7); EOS % 1.3 % (0.0-4.0); HEMATOCRIT 32.9 % (34.0-47.0); LYMPH # 1.1 K/uL (1.0-4.3); LYMPH % 26.5 % (20.0-40.0); MEAN CELL VOLUME 91.1 fL (81.0-99.0); MEAN CORPUSCULAR HEMOGLOBIN 30.5 pg (27.0-31.0); MEAN CORPUSCULAR HGB CONC 33.5 g/dL (33.0-37.0); MEAN PLATELET VOLUME 9.6 fL (7.2-11.7); MONO # 0.4 K/uL (0.0-0.8); MONO % 9.6 % (0.0-10.0); NRBC % 0.1 % (0.0-2.0); RED CELL DISTRIBUTION WIDTH 13.2 % (11.5-14.5); WHITE BLOOD COUNT 4.1 K/uL (4.8-10.8)
[2017-03-23 08:04] LABS: CHLORIDE 106 mmol/L (98-107); POTASSIUM 4.3 mmol/L (3.6-5.2); SODIUM 139 mmol/L (132-148)
[2017-03-23 08:06] LABS: BILIRUBIN,TOTAL 0.9 mg/dL (0.2-1.3); CARBON DIOXIDE 25 mmol/L (22-30); GFR AFRICAN-AMERICAN > 60
[2017-03-23 08:07] LABS: ALB/GLOB RATIO 1.3 (1.0-2.1); ALKALINE PHOSPHATASE 62 U/L (38-126); ALT/SGPT 29 U/L (9-52); AST/SGOT 22 U/L (14-36); BLOOD UREA NITROGEN 9 mg/dL (7-17); CALCIUM 8.5 mg/dl (8.6-10.4); GLUCOSE,RANDOM 74 mg/dL (65-105); MAGNESIUM 1.8 mg/dL (1.6-2.3); PHOSPHOROUS 3.2 mg/dL (2.5-4.5); TOTAL PROTEIN 5.3 g/dL (6.3-8.3)
[2017-03-23] MEDS: Ciprofloxacin 400mg/200ml D5W 400 MG/200 ML BAG IVPB SCH ×2 (08:41→20:51)
--- NOTE | 2017-03-23 09:04 | RAD ---
Abdomen four views History: Abdominal pain. Evaluate for ileus and/or small bowel obstruction. Comparison: 03/21/2017 Findings: Persistent dilated loops of small bowel within the mid and lower abdomen. Moderate fecal retention throughout the colon. Degenerative changes in the spine and bilateral hips. Bibasilar breast and nipple shadows. Prominent rounded nodular densities at both lung bases likely represent nipple shadows. Diffuse increased interstitial lung markings. Heart size within normal limits. Impression: Nonspecific bowel gas pattern with dilated loops of small bowel seen within the mid and lower abdomen. Moderate fecal retention in the colon. These findings are nonspecific ; however, partial and or developing small bowel obstruction cannot entirely be excluded. Clinical correlation.
--- NOTE | 2017-03-23 09:43 | CP.PCM.PN ---
Subjective - Date & Time of Evaluation Date of Evaluation: 03/23/17 Time of Evaluation: 09:40 - Subjective Subjective: COVERING DR COREY No further pain or vomiting. Passing flatus but no stool. Repeat KUB shows no significant change Objective - Vital Signs/Intake and Output Vital Signs (last 24 hours): Temp Pulse Resp BP Pulse Ox 98 F 59 L 21 154/78 H 100 03/23/17 08:00 03/23/17 08:00 03/23/17 08:00 03/23/17 08:00 03/23/17 08:00 Intake and Output: 03/23/17 03/23/17 06:59 18:59 Intake Total 2350 Output Total 1300 Balance 1050 - Medications Medications: Current Medications Docusate Sodium (Colace) 100 mg PO TID [facility] Hydromorphone HCl (Dilaudid) 0.5 mg IVP Q4H PRN PRN Reason: Pain, moderate (4-7) Potassium Chloride 40 meq/ (Sodium Chloride) 1,020 mls @ 100 mls/hr IV .[id number] [facility] Last Admin: 03/23/17 07:17 Dose: 100 mls/hr Metronidazole (Flagyl) 500 mg in 100 mls @ 100 mls/hr IVPB Q8H [facility] Last Admin: 03/23/17 03:00 Dose: 100 mls/hr Ciprofloxacin (Cipro 400mg/200ml Dsw) 400 mg in 200 mls @ 133 mls/hr IVPB Q12H [facility] Last Admin: 03/23/17 08:41 Dose: 133 mls/hr Ketorolac Tromethamine (Toradol) 30 mg IVP Q6 PRN PRN Reason: Pain, moderate (4-7) Ketorolac Tromethamine (Toradol) 15 mg IVP Q6 PRN PRN Reason: Pain, Mild (1-3) Ondansetron HCl (Zofran Inj) 4 mg IVP Q6 PRN PRN Reason: Nausea/Vomiting Pantoprazole Sodium (Protonix Inj) 40 mg IVP DAILY [facility] Last Admin: 03/22/17 08:59 Dose: 40 mg - Labs Labs: 03/23/17 07:25 03/23/17 07:25 - Constitutional Appears: No Acute Distress - Head Exam Head Exam: ATRAUMATIC, NORMOCEPHALIC - Eye Exam Eye Exam: EOMI, PERRL - Respiratory Exam Respiratory Exam: NORMAL BREATHING PATTERN - Cardiovascular Exam Cardiovascular Exam: REGULAR RHYTHM - GI/Abdominal Exam GI & Abdominal Exam: Soft, Normal Bowel Sounds. absent: Distended, Tenderness, Mass, Rebound - Extremities Exam Extremities Exam: Normal Inspection Assessment and Plan (1) Constipation Assessment & Plan: Still no stool though passing flatus Consider Dulcolax supp or enema if ok with surgical team. Status: Acute (2) Abdominal pain Assessment & Plan: Resolved at present Status: Acute (3) SBO (small bowel obstruction) Assessment & Plan: Clinically improving but no bowel movement as of yet, passing flatus. Surgical followup . Status: Acute
--- NOTE | 2017-03-23 10:43 | CP.PCM.PN ---
<Kasia Green - Last Filed: 03/23/17 10:39> Subjective - Date & Time of Evaluation Date of Evaluation: 03/23/17 Time of Evaluation: 10:39 - Subjective Subjective: Patient seen and examined at bedside. Patient doing well today with no new complaints at this time. Patient says she is having pressure in her lower abdomen but it does not feel like cramping as before. Patient says she is still passing flatus but has not had a bowel movement yet. She says she feels like she needs to have a BM but has not been able to. Patient has been ambulating trying to help with this. Patient denies fever, chills, vomiting, chest pain, SOB, and extremity pain/swelling. Objective - Vital Signs/Intake and Output Vital Signs (last 24 hours): Temp Pulse Resp BP Pulse Ox 98 F 59 L 21 154/78 H 100 03/23/17 08:00 03/23/17 08:00 03/23/17 08:00 03/23/17 08:00 03/23/17 08:00 Intake and Output: 03/23/17 03/23/17 06:59 18:59 Intake Total 2350 Output Total 1300 Balance 1050 - Medications Medications: Current Medications Docusate Sodium (Colace) 100 mg PO TID [facility] Last Admin: 03/23/17 09:53 Dose: 100 mg Hydromorphone HCl (Dilaudid) 0.5 mg IVP Q4H PRN PRN Reason: Pain, moderate (4-7) Potassium Chloride 40 meq/ (Sodium Chloride) 1,020 mls @ 100 mls/hr IV .[id number] [facility] Last Admin: 03/23/17 07:17 Dose: 100 mls/hr Metronidazole (Flagyl) 500 mg in 100 mls @ 100 mls/hr IVPB Q8H [facility] Last Admin: 03/23/17 09:53 Dose: 100 mls/hr Ciprofloxacin (Cipro 400mg/200ml Dsw) 400 mg in 200 mls @ 133 mls/hr IVPB Q12H [facility] Last Admin: 03/23/17 08:41 Dose: 133 mls/hr Ketorolac Tromethamine (Toradol) 30 mg IVP Q6 PRN PRN Reason: Pain, moderate (4-7) Ketorolac Tromethamine (Toradol) 15 mg IVP Q6 PRN PRN Reason: Pain, Mild (1-3) Ondansetron HCl (Zofran Inj) 4 mg IVP Q6 PRN PRN Reason: Nausea/Vomiting Pantoprazole Sodium (Protonix Inj) 40 mg IVP DAILY [facility] Last Admin: 03/23/17 09:53 Dose: 40 mg - Labs Labs: 03/23/17 07:25 03/23/17 07:25 - Additional Findings Additional findings: - Constitutional Appears: Non-toxic, No Acute Distress - Head Exam Head Exam: ATRAUMATIC, NORMAL INSPECTION - Eye Exam Eye Exam: EOMI, Normal appearance - ENT Exam ENT Exam: Mucous Membranes Moist, Normal Oropharynx - Neck Exam Neck exam: Negative for: Lymphadenopathy, Tenderness - Respiratory Exam Respiratory Exam: Clear to Auscultation Bilateral, NORMAL BREATHING PATTERN. absent: Accessory Muscle Use, Rales, Rhonchi, Wheezes, Respiratory Distress - Cardiovascular Exam Cardiovascular Exam: REGULAR RHYTHM, +S1, +S2. absent: Bradycardia, Tachycardia , Rubs, Systolic Murmur - GI/Abdominal Exam GI & Abdominal Exam: Normal active bowel Sounds, Soft. absent: Distended, Tenderness, Guarding, Organomegaly, Rebound - Extremities Exam Extremities exam: Positive for: normal capillary refill, normal inspection, pedal pulses present. Negative for: pedal edema, tenderness Additional comments: Lateral deviation of b/l great toes at the MTP joint - Back Exam Back exam: NORMAL INSPECTION. absent: paraspinal tenderness, rash noted, vertebral tenderness - Neurological Exam Neurological exam: Alert, Oriented x3 - Psychiatric Exam Psychiatric exam: Normal Affect, Normal Mood - Skin Skin Exam: Dry, Intact, Normal Color, Warm Assessment and Plan - Assessment and Plan (Free Text) Assessment: Abdominal pain * CT abdomen and pelvis: mild/moderate dilated loops of small bowel, trace free fluid in right abdomen; SBO vs ileus * Surgery consulted (Dr. Aviles) - recs appreciated * Advanced diet to clear liquid diet - patient passing flatus * No surgical intervention or NG tube needed at this time; will place NG tube if vomiting * procal: 0.05 * Likely SBO due to enteritis * Cipro 400 IV Q12 * Flagyl 500 mg IV Q8 * GI consulted ([facility]) - recs appreciated * obstructive series: Nonspecific bowel gas pattern with dilated loops of small bowel seen within the mid and lower abdomen. Moderate fecal retention in the colon. These findings are nonspecific ; however, partial and or developing small bowel obstruction cannot entirely be excluded. * consider CT enterography or CT with oral contrast * NS + KCl 40 mEq @ 100/hr * Potassium 3.5 upon admission; normalized to 4.5 on 03/22 * Dilaudid 0.5 mg PRN severe pain * Toradol 30 mg Q6 PRN moderate pain * Toradol 15 mg Q6 PRN mild pain * Colace 100 mg PO TID * Lipase: 79 Hx unspecified autoimmune disease * followed by PMD (Dr. Javy Bradley) PPX * DVT risk score: 1 * SCDs * Hold heparin * Protonix 40 mg IV QD <Rashaun Bradley - Last Filed: 03/23/17 21:06> Objective - Vital Signs/Intake and Output Vital Signs (last 24 hours): Temp Pulse Resp BP Pulse Ox 98.6 F 62 20 165/74 H 99 03/23/17 16:00 03/23/17 16:00 03/23/17 16:00 03/23/17 16:00 03/23/17 16:00 Intake and Output: 03/23/17 03/24/17 18:59 06:59 Intake Total 700 Balance 700 - Medications Medications: Current Medications Docusate Sodium (Colace) 100 mg PO TID [facility] Last Admin: 03/23/17 17:41 Dose: 100 mg Hydromorphone HCl (Dilaudid) 0.5 mg IVP Q4H PRN PRN Reason: Pain, moderate (4-7) Potassium Chloride 40 meq/ (Sodium Chloride) 1,020 mls @ 100 mls/hr IV .[id number] [facility] Last Admin: 03/23/17 18:00 Dose: 100 mls/hr Metronidazole (Flagyl) 500 mg in 100 mls @ 100 mls/hr IVPB Q8H [facility] Last Admin: 03/23/17 17:41 Dose: 100 mls/hr Ciprofloxacin (Cipro 400mg/200ml Dsw) 400 mg in 200 mls @ 133 mls/hr IVPB Q12H [facility] Last Admin: 03/23/17 20:51 Dose: 133 mls/hr Ketorolac Tromethamine (Toradol) 30 mg IVP Q6 PRN PRN Reason: Pain, moderate (4-7) Ketorolac Tromethamine (Toradol) 15 mg IVP Q6 PRN PRN Reason: Pain, Mild (1-3) Ondansetron HCl (Zofran Inj) 4 mg IVP Q6 PRN PRN Reason: Nausea/Vomiting Pantoprazole Sodium (Protonix Inj) 40 mg IVP DAILY [facility] Last Admin: 03/23/17 09:53 Dose: 40 mg - Labs Labs: 03/23/17 07:25 03/23/17 07:25 Attending/Attestation - Attestation I have personally seen and examined this patient.: Yes I have fully participated in the care of the patient.: Yes I have reviewed all pertinent clinical information, including history, physical exam and plan: Yes Notes (Text): 03/23/17 20:59 Patient was seen and examined at 8:15 AM 03/23/17. Exam, assessment and plan were thoroughly gone over with the resident. At the time of initial exam, patient stated that she was tolerating her clear liquid diet and passing gas but still without bowel movement and was not nauseous. I re-examined patient at 8:45 PM and patient complained of bloating sensation and sensation that after eating she felt like the liquid was stuck in the epigastric area. She states that she is also no longer passing gas. Because of this she is afraid to eat. She did have pudding and oatmeal and she states that she may be lactose intolerant. I have asked her to drink and have only the clear liquids. Her repeat abdominal exam is completely normal/unremarkable and she is not in any distress. Recommend Medicine Team speak with Surgical Team and if ok with them, order Fleet Enema as the Colon has moderate amount of stool and this may help things move along, so to speak. Rashaun Bradley D.O.
--- NOTE | 2017-03-23 10:47 | CP.PCM.PN ---
Subjective - Date & Time of Evaluation Date of Evaluation: 03/23/17 Time of Evaluation: 07:00 - Subjective Subjective: General Surgery Dr. Aviles Pt S&E @bedside. NAEO. admits to decreased distension and abd pain. denies N/V. (+)Flatus, (-) BM. tolerating CLD Objective - Vital Signs/Intake and Output Vital Signs (last 24 hours): Temp Pulse Resp BP Pulse Ox 98 F 59 L 21 154/78 H 100 03/23/17 08:00 03/23/17 08:00 03/23/17 08:00 03/23/17 08:00 03/23/17 08:00 Intake and Output: 03/23/17 03/23/17 06:59 18:59 Intake Total 2350 Output Total 1300 Balance 1050 - Medications Medications: Current Medications Docusate Sodium (Colace) 100 mg PO TID [facility] Last Admin: 03/23/17 09:53 Dose: 100 mg Hydromorphone HCl (Dilaudid) 0.5 mg IVP Q4H PRN PRN Reason: Pain, moderate (4-7) Potassium Chloride 40 meq/ (Sodium Chloride) 1,020 mls @ 100 mls/hr IV .[id number] [facility] Last Admin: 03/23/17 07:17 Dose: 100 mls/hr Metronidazole (Flagyl) 500 mg in 100 mls @ 100 mls/hr IVPB Q8H [facility] Last Admin: 03/23/17 09:53 Dose: 100 mls/hr Ciprofloxacin (Cipro 400mg/200ml Dsw) 400 mg in 200 mls @ 133 mls/hr IVPB Q12H [facility] Last Admin: 03/23/17 08:41 Dose: 133 mls/hr Ketorolac Tromethamine (Toradol) 30 mg IVP Q6 PRN PRN Reason: Pain, moderate (4-7) Ketorolac Tromethamine (Toradol) 15 mg IVP Q6 PRN PRN Reason: Pain, Mild (1-3) Ondansetron HCl (Zofran Inj) 4 mg IVP Q6 PRN PRN Reason: Nausea/Vomiting Pantoprazole Sodium (Protonix Inj) 40 mg IVP DAILY [facility] Last Admin: 03/23/17 09:53 Dose: 40 mg - Labs Labs: 03/23/17 07:25 03/23/17 07:25 - Constitutional Appears: Non-toxic, No Acute Distress - Head Exam Head Exam: NORMAL INSPECTION - Eye Exam Eye Exam: Normal appearance - ENT Exam ENT Exam: Mucous Membranes Moist - Respiratory Exam Respiratory Exam: NORMAL BREATHING PATTERN. absent: Accessory Muscle Use, Respiratory Distress - GI/Abdominal Exam GI & Abdominal Exam: Soft. absent: Distended, Tenderness - Extremities Exam Extremities Exam: Normal Inspection - Neurological Exam Neurological Exam: Alert, Awake, Normal Gait, Oriented x3 - Psychiatric Exam Psychiatric exam: Normal Affect, Normal Mood - Skin Skin Exam: Dry, Intact, Normal Color, Warm Assessment and Plan - Assessment and Plan (Free Text) Assessment: 67 y/o F w/ partial SBO vs enteritis - resolving - cont CLD - monitor bowel fxn - Colace TID NINFA - advance diet once BM - non-narcotic pain management - cont medical management Pt discussed w/ Dr. Traci Gray DO PGY2
[2017-03-23 17:20] VITALS: RESP 20
[2017-03-24] MEDS: metroNIDAZOLE IV 500 mg/100 ml 500 MG/100 ML BAG IVPB SCH ×3 (02:04→17:29)
[2017-03-24 06:53] LABS: BASO % 0.6 % (0.0-2.0); EOS # 0.1 K/uL (0.0-0.7); EOS % 1.3 % (0.0-4.0); HEMATOCRIT 36.5 % (34.0-47.0); LYMPH # 0.9 K/uL (1.0-4.3); MEAN CELL VOLUME 89.7 fL (81.0-99.0); MEAN CORPUSCULAR HEMOGLOBIN 30.8 pg (27.0-31.0); MEAN CORPUSCULAR HGB CONC 34.3 g/dL (33.0-37.0); MEAN PLATELET VOLUME 9.7 fL (7.2-11.7); MONO # 0.4 K/uL (0.0-0.8); MONO % 10.8 % (0.0-10.0); NRBC % 0.1 % (0.0-2.0); RED CELL DISTRIBUTION WIDTH 13.1 % (11.5-14.5); WHITE BLOOD COUNT 4.2 K/uL (4.8-10.8)
[2017-03-24 07:50] LABS: CHLORIDE 105 mmol/L (98-107); POTASSIUM 4.3 mmol/L (3.6-5.2); SODIUM 139 mmol/L (132-148)
[2017-03-24 07:53] LABS: ALB/GLOB RATIO 1.5 (1.0-2.1); ALKALINE PHOSPHATASE 84 U/L (38-126); ALT/SGPT 40 U/L (9-52); AST/SGOT 47 U/L (14-36); BILIRUBIN,TOTAL 1.1 mg/dL (0.2-1.3); BLOOD UREA NITROGEN 7 mg/dL (7-17); CALCIUM 9.1 mg/dl (8.6-10.4); CARBON DIOXIDE 23 mmol/L (22-30); GFR AFRICAN-AMERICAN > 60; GLUCOSE,RANDOM 80 mg/dL (65-105); MAGNESIUM 1.8 mg/dL (1.6-2.3); PHOSPHOROUS 3.5 mg/dL (2.5-4.5); TOTAL PROTEIN 6.8 g/dL (6.3-8.3)
[2017-03-24] MEDS ORDERED: Mineral Oil Enema 135 ml RC ONE ×2 (08:27→18:00)
[2017-03-24] MEDS: Ciprofloxacin 400mg/200ml D5W 400 MG/200 ML BAG IVPB SCH ×3 (08:33→19:48)
--- NOTE | 2017-03-24 09:44 | CP.PCM.PN ---
Subjective - Date & Time of Evaluation Date of Evaluation: 03/24/17 Time of Evaluation: 09:42 - Subjective Subjective: Patient denies having nausea, vomiting, abdominal pain. She is passing flatus but has not had a bowel movement since adcmission. Objective - Vital Signs/Intake and Output Vital Signs (last 24 hours): Temp Pulse Resp BP Pulse Ox 98.1 F 68 20 176/79 H 99 03/24/17 09:16 03/24/17 09:16 03/24/17 09:16 03/24/17 09:16 03/24/17 09:16 Intake and Output: 03/24/17 03/24/17 06:59 18:59 Intake Total 1350 Output Total 600 Balance 750 - Medications Medications: Current Medications Docusate Sodium (Colace) 100 mg PO TID [facility] Last Admin: 03/24/17 09:33 Dose: 100 mg Potassium Chloride 40 meq/ (Sodium Chloride) 1,020 mls @ 100 mls/hr IV .[id number] [facility] Last Admin: 03/23/17 18:00 Dose: 100 mls/hr Metronidazole (Flagyl) 500 mg in 100 mls @ 100 mls/hr IVPB Q8H [facility] Last Admin: 03/24/17 02:04 Dose: 100 mls/hr Ciprofloxacin (Cipro 400mg/200ml Dsw) 400 mg in 200 mls @ 133 mls/hr IVPB Q12H [facility] Last Admin: 03/24/17 08:33 Dose: 133 mls/hr Ketorolac Tromethamine (Toradol) 15 mg IVP Q6 PRN PRN Reason: Pain, Mild (1-3) Ondansetron HCl (Zofran Inj) 4 mg IVP Q6 PRN PRN Reason: Nausea/Vomiting Pantoprazole Sodium (Protonix Inj) 40 mg IVP DAILY [facility] Last Admin: 03/24/17 09:33 Dose: 40 mg - Labs Labs: 03/24/17 06:43 03/24/17 06:43 - Head Exam Head Exam: ATRAUMATIC, NORMOCEPHALIC - Eye Exam Eye Exam: EOMI, PERRL - Neck Exam Neck Exam: absent: Lymphadenopathy, Thyromegaly - Respiratory Exam Respiratory Exam: NORMAL BREATHING PATTERN. absent: Rales, Rhonchi, Wheezes - Cardiovascular Exam Cardiovascular Exam: REGULAR RHYTHM, +S1, +S2. absent: Gallop, Rubs, Murmur - GI/Abdominal Exam GI & Abdominal Exam: Soft, Normal Bowel Sounds. absent: Tenderness, Mass, Organomegaly - Rectal Exam Rectal Exam: Deferred - Extremities Exam Extremities Exam: absent: Calf Tenderness, Pedal Edema Assessment and Plan (1) Abdominal pain Assessment & Plan: Abdominal pain has resolved. She is attempting to eat today. Consider discharge if she is able to tolerate regular diet. Status: Acute
[2017-03-24] MEDS ORDERED: Iohexol 240 (50 ml) PO ONE (12:00)
[2017-03-24] MEDS ORDERED: Iodixanol 320 mg/ml 150 ml Bottle IV ONE (13:36)
--- NOTE | 2017-03-24 15:23 | CT ---
PROCEDURE: CT Abdomen and Pelvis with contrast HISTORY: Follow up small bowel obstruction COMPARISON: None. TECHNIQUE: Contrast dose: 100 mL Visipaque 320 Radiation dose: Total exam DLP = 236.97 mGy-cm. This CT exam was performed using one or more of the following dose reduction techniques: Automated exposure control, adjustment of the mA and/or kV according to patient size, and/or use of iterative reconstruction technique. FINDINGS: LOWER THORAX: Unremarkable. LIVER: Unremarkable. No gross lesion or ductal dilatation. GALLBLADDER AND BILE DUCTS: Unremarkable. PANCREAS: Unremarkable. No gross lesion or ductal dilatation. SPLEEN: Unremarkable. ADRENALS: Mild bilateral adrenal hypertrophy. No adrenal mass. KIDNEYS AND URETERS: Unremarkable. No hydronephrosis. No solid mass. VASCULATURE: Unremarkable. No aortic aneurysm. BOWEL: Previously noted dilatation of small bowel has resolved. No evidence of bowel obstruction. No abnormal bowel loops. APPENDIX: Not identified. No secondary findings to suggest acute appendicitis. PERITONEUM: Unremarkable. No free fluid. No free air. LYMPH NODES: Unremarkable. No enlarged lymph nodes. BLADDER: Unremarkable. REPRODUCTIVE: Retroverted uterus. BONES: No evidence of fracture. Grade 1 anterolisthesis at L4-5. No spondylolysis. OTHER FINDINGS: None. IMPRESSION: No evidence of bowel obstruction. Additional minor findings as above.
--- NOTE | 2017-03-24 15:45 | RAD ---
PROCEDURE: Radiographs of the chest and abdomen (obstructive series) HISTORY: SBO (complains of abdominal heaviness/bloating) COMPARISON: No prior. TECHNIQUE: AP radiograph of the chest, with upright and supine radiographs of the abdomen. FINDINGS: CHEST: Lungs: Clear. Cardiovascular: Normal size heart. No pulmonary vascular congestion. Pleura: No pleural fluid. No pneumothorax. Other findings: None. ABDOMEN AND PELVIS: Bowel: Unremarkable bowel gas pattern. No evidence of mechanical obstruction. Free air: None. Bones: Unremarkable. Other findings: None. IMPRESSION: Unremarkable radiographs of chest and abdomen. No evidence of mechanical bowel obstruction.
--- NOTE | 2017-03-24 16:03 | CP.PCM.PN ---
<Marvin Phelps - Last Filed: 03/24/17 17:14> Subjective - Date & Time of Evaluation Date of Evaluation: 03/24/17 Time of Evaluation: 09:00 - Subjective Subjective: PGY [address] Beaulieu Patient seen and examined at bedside today. Patient was up walking around her room at the time of the examination. She reports tolerating a liquid diet, is passing flatus but has not had a BM. Patient is requesting if there is anything that can be given to help her go to the bathroom so she can go home. States her abdominal pain has gone away. Denies f/c, n/v, sob, cp or headaches. Objective - Vital Signs/Intake and Output Vital Signs (last 24 hours): Temp Pulse Resp BP Pulse Ox 98.1 F 68 20 176/79 H 99 03/24/17 09:16 03/24/17 09:16 03/24/17 09:16 03/24/17 09:16 03/24/17 09:16 Intake and Output: 03/24/17 03/24/17 06:59 18:59 Intake Total 1350 Output Total 600 Balance 750 - Medications Medications: Current Medications Docusate Sodium (Colace) 100 mg PO TID [facility] Last Admin: 03/24/17 14:35 Dose: 100 mg Heparin Sodium (Porcine) (Heparin) 5,000 units SC Q12 [facility] Metronidazole (Flagyl) 500 mg in 100 mls @ 100 mls/hr IVPB Q8H [facility] Last Admin: 03/24/17 10:58 Dose: 100 mls/hr Ciprofloxacin (Cipro 400mg/200ml Dsw) 400 mg in 200 mls @ 133 mls/hr IVPB Q12H [facility] Last Admin: 03/24/17 08:33 Dose: 133 mls/hr Ondansetron HCl (Zofran Inj) 4 mg IVP Q6 PRN PRN Reason: Nausea/Vomiting Pantoprazole Sodium (Protonix Inj) 40 mg IVP DAILY [facility] Last Admin: 03/24/17 09:33 Dose: 40 mg - Labs Labs: 03/24/17 06:43 03/24/17 06:43 - Constitutional Appears: Non-toxic, No Acute Distress - Head Exam Head Exam: ATRAUMATIC, NORMOCEPHALIC - Eye Exam Eye Exam: EOMI, Normal appearance - ENT Exam ENT Exam: Mucous Membranes Moist - Respiratory Exam Respiratory Exam: Clear to Ausculation Bilateral, NORMAL BREATHING PATTERN. absent: Accessory Muscle Use, Respiratory Distress - Cardiovascular Exam Cardiovascular Exam: REGULAR RHYTHM, +S1, +S2 - GI/Abdominal Exam GI & Abdominal Exam: Soft, Normal Bowel Sounds. absent: Distended, Firm, Guarding, Rigid, Tenderness - Extremities Exam Extremities Exam: absent: Calf Tenderness, Pedal Edema, Tenderness - Neurological Exam Neurological Exam: Alert, Awake, CN II-XII Intact, Oriented x3. absent: Motor Sensory Deficit - Psychiatric Exam Psychiatric exam: Normal Affect, Normal Mood - Skin Skin Exam: Dry, Intact, Normal Color, Warm Assessment and Plan - Assessment and Plan (Free Text) Assessment: Abdominal pain * CT Abd w/IV and PO contrast 03/24: No evidence of bowel obstruction. * CT abdomen and pelvis 03/21: mild/moderate dilated loops of small bowel, trace free fluid in right abdomen; SBO vs ileus * Surgery consulted (Dr. Aviles) - recs appreciated * No surgical intervention or NG tube needed at this time; will place NG tube if vomiting * procal: 0.05 * Likely SBO due to enteritis * Cipro 400 IV Q12 * Flagyl 500 mg IV Q8 * GI consulted ([facility]) - recs appreciated * obstructive series: Nonspecific bowel gas pattern with dilated loops of small bowel seen within the mid and lower abdomen. Moderate fecal retention in the colon. These findings are nonspecific ; however, partial and or developing small bowel obstruction cannot entirely be excluded. * Did not want fleet enema given today. Will observe patient one more night. * NS + KCl 40 mEq @ 100/hr * Potassium 3.5 upon admission; normalized to 4.5 on 03/22 * Dilaudid 0.5 mg PRN severe pain * Toradol 30 mg Q6 PRN moderate pain * Toradol 15 mg Q6 PRN mild pain * Colace 100 mg PO TID * Lipase: 79 Hx unspecified autoimmune disease * followed by PMD (Dr. Javy Bradley) PPX * DVT risk score: 1 - Patient is ambulating, seen walking around halls. * SCDs * Hold heparin * Protonix 40 mg IV QD Case discussed with Dr. Brittnee Wong Mattie PGY1 <Zuleyma Beaulieu V - Last Filed: 03/24/17 19:54> Objective - Vital Signs/Intake and Output Vital Signs (last 24 hours): Temp Pulse Resp BP Pulse Ox 98.8 F 63 20 135/68 100 03/24/17 15:00 03/24/17 15:00 03/24/17 15:00 03/24/17 15:00 03/24/17 15:00 Intake and Output: 03/24/17 03/25/17 18:59 06:59 Intake Total 1200 Balance 1200 - Medications Medications: Current Medications Docusate Sodium (Colace) 100 mg PO TID [facility] Last Admin: 03/24/17 17:29 Dose: 100 mg Heparin Sodium (Porcine) (Heparin) 5,000 units SC Q12 [facility] Metronidazole (Flagyl) 500 mg in 100 mls @ 100 mls/hr IVPB Q8H [facility] Last Admin: 03/24/17 17:29 Dose: 100 mls/hr Ciprofloxacin (Cipro 400mg/200ml Dsw) 400 mg in 200 mls @ 133 mls/hr IVPB Q12H [facility] Last Admin: 03/24/17 08:33 Dose: 133 mls/hr Ondansetron HCl (Zofran Inj) 4 mg IVP Q6 PRN PRN Reason: Nausea/Vomiting Pantoprazole Sodium (Protonix Inj) 40 mg IVP DAILY [facility] Last Admin: 03/24/17 09:33 Dose: 40 mg - Labs Labs: 03/24/17 06:43 03/24/17 06:43 Attending/Attestation - Attestation I have personally seen and examined this patient.: Yes I have fully participated in the care of the patient.: Yes I have reviewed all pertinent clinical information, including history, physical exam and plan: Yes Notes (Text): Patient seen, examined, and case discussed with day-time resident. Patient seen during morning rounds. Patient reporting she is having flatus but has not have bowel movement. Educated patient regarding maintain diet high in fiber to prevent constipation such as prune, papaya, pear, pineapple, supplement foods she eats with Benefiber or Metamucil or use natural products such as Psyillum Husks to increase fiber intake. Patient's diet advanced to soft per conversation with the patient form liquids Patient's CT scan repeated by GI; No SBO observed. Patient had received Mineral enema this morning; received Fleet enema this evening. Discussed with evening nurse, if patient has bowel movement later tonight, patient may go home. Resident and osteopathic medical students discussed noninvasive soft tissue techniques (OMT) to help assist patient in encouraging bowel movement. Assessment/Plan 1) Abdominal pain Constipation Small Bowel Obstruction * CT Abd w/IV and PO contrast 03/24: No evidence of bowel obstruction. * CT abdomen and pelvis 03/21: mild/moderate dilated loops of small bowel, trace free fluid in right abdomen; SBO vs ileus * Abdominal Obstructive series 03/24/17: no evidence of mechanical bowel obstruction; Nonspecific gas pattern * Abdominal Obstructive series 03/23/17: nonspecific bowel gas pattern with dilated loops of small bowel seen within the mid and lower abdomen. Moderate fecal retention in the colon. nonspecific; however partial and small bowel obstruction * Surgery consulted (Dr. Aviles) - recs appreciated * No surgical intervention or NG tube needed at this time; will place NG tube if vomiting-->no vomitting, no nausea; patient wants a rosario diet * Cipro 400 IV Q12H and Flagyl 500 mg IV Q8H * GI consulted ([facility]) - recs appreciated * Abdominal Obstructive series 03/24/17: no evidence of mechanical bowel obstruction; Nonspecific gas pattern * Abdominal Obstructive series 03/23/17: nonspecific bowel gas pattern with dilated loops of small bowel seen within the mid and lower abdomen. Moderate fecal retention in the colon. nonspecific; however partial and small bowel obstruction * Dilaudid 0.5 mg PRN severe pain * Colace 100 mg PO TID * Lipase: 79 * 03/24: Given Mineral enema per surgery this morning; given fleet enema later this afternoon; will order for magnesium citrate if does not have bowel movement ; patient without bowel movement since 03/19/17 2) Leukopenia * While on IV abx; N# above 1.6 * per Uptodate, side effect of Flagyl is neutropenia; patient has been on Flagyl during hospitalization; is reversible. 3) PPX * DVT risk score: 1 - Patient is ambulating, seen walking around halls. * SCDs * Protonix 40 mg IV QDaily Disposition: If patient has bowel movement, patient may be discharged. Will need to follow-up with GI for outpatient colonoscopy. Medication reconciled if patient has bowel movement. Recommended for stool softeners and encourage fiber intake in diet
--- NOTE | 2017-03-24 16:31 | CP.PCM.PN ---
Subjective - Date & Time of Evaluation Date of Evaluation: 03/24/17 Time of Evaluation: 16:28 - Subjective Subjective: Gen Sx: Dr Aviles Pt S&e. NAEO. Tolerating liquid diet. Repeat CT ordered by GI shows no pathology. Passing flatus. No BM yet. Diet advanced to soft per primary. Denies pain, n/v Objective - Vital Signs/Intake and Output Vital Signs (last 24 hours): Temp Pulse Resp BP Pulse Ox 98.1 F 68 20 176/79 H 99 03/24/17 09:16 03/24/17 09:16 03/24/17 09:16 03/24/17 09:16 03/24/17 09:16 Intake and Output: 03/24/17 03/24/17 06:59 18:59 Intake Total 1350 1200 Output Total 600 Balance 750 1200 - Medications Medications: Current Medications Docusate Sodium (Colace) 100 mg PO TID [facility] Last Admin: 03/24/17 14:35 Dose: 100 mg Heparin Sodium (Porcine) (Heparin) 5,000 units SC Q12 [facility] Metronidazole (Flagyl) 500 mg in 100 mls @ 100 mls/hr IVPB Q8H [facility] Last Admin: 03/24/17 10:58 Dose: 100 mls/hr Ciprofloxacin (Cipro 400mg/200ml Dsw) 400 mg in 200 mls @ 133 mls/hr IVPB Q12H [facility] Last Admin: 03/24/17 08:33 Dose: 133 mls/hr Ondansetron HCl (Zofran Inj) 4 mg IVP Q6 PRN PRN Reason: Nausea/Vomiting Pantoprazole Sodium (Protonix Inj) 40 mg IVP DAILY [facility] Last Admin: 03/24/17 09:33 Dose: 40 mg - Labs Labs: 03/24/17 06:43 03/24/17 06:43 - Constitutional Appears: Non-toxic, No Acute Distress - Respiratory Exam Respiratory Exam: absent: Accessory Muscle Use, Respiratory Distress - Cardiovascular Exam Cardiovascular Exam: REGULAR RHYTHM - GI/Abdominal Exam GI & Abdominal Exam: Soft. absent: Distended, Tenderness Assessment and Plan - Assessment and Plan (Free Text) Assessment: 67F admitted for sbo; resolving Plan: pt on regular diet now denies pain, nausea or vomiting clear for D/C once has BM recommend outpatient colonoscopy d/w Dr Traci Beckham, PGY3
[2017-03-24 16:57] VITALS: BP 135/68; PULSE 63; TEMP 98.8; O2SAT 100
[2017-03-24] MEDS ORDERED: Magnesium Citrate Oral SOL (300 ml) PO ONE (18:28)
[2017-03-24] MEDS ORDERED: Pneumococcal 23-Valent Vaccine IM ONE (19:07)
--- NOTE | 2017-03-25 18:39 | CP.PCM.DIS ---
Provider - Provider Date of Admission: 03/21/17 12:38 Attending physician: Zuleyma Beaulieu DO Time Spent in preparation of Discharge (in minutes): 20 Hospital Course - Lab Results Lab Results: Most Recent Lab Values WBC 4.2 K/uL (4.8-10.8) L 03/24/17 06:43 RBC 4.07 Mil/uL (3.80-5.20) 03/24/17 06:43 Hgb 12.5 g/dL (11.0-16.0) 03/24/17 06:43 Hct 36.5 % (34.0-47.0) 03/24/17 06:43 MCV 89.7 fL (81.0-99.0) 03/24/17 06:43 MCH 30.8 pg (27.0-31.0) 03/24/17 06:43 MCHC 34.3 g/dL (33.0-37.0) 03/24/17 06:43 RDW 13.1 % (11.5-14.5) 03/24/17 06:43 Plt Count 191 K/uL (130-400) 03/24/17 06:43 MPV 9.7 fL (7.2-11.7) 03/24/17 06:43 Neut % (Auto) 65.3 % (50.0-75.0) 03/24/17 06:43 Lymph % (Auto) 22.0 % (20.0-40.0) 03/24/17 06:43 [place] % (Auto) 10.8 % (0.0-10.0) H 03/24/17 06:43 Eos % (Auto) 1.3 % (0.0-4.0) 03/24/17 06:43 Baso % (Auto) 0.6 % (0.0-2.0) 03/24/17 06:43 Neut # 2.7 K/uL (1.8-7.0) 03/24/17 06:43 Lymph # 0.9 K/uL (1.0-4.3) L 03/24/17 06:43 [place] # 0.4 K/uL (0.0-0.8) 03/24/17 06:43 Eos # 0.1 K/uL (0.0-0.7) 03/24/17 06:43 Baso # 0.0 K/uL (0.0-0.2) 03/24/17 06:43 Neutrophils % (Manual) 94 % (50-75) H 03/21/17 10:14 Lymphocytes % (Manual) 6 % (20-40) L 03/21/17 10:14 Monocytes % (Manual) TEST NOT PERFORMED 03/21/17 10:14 Platelet Estimate Normal (NORMAL) 03/21/17 10:14 RBC Morphology Normal 03/21/17 10:14 Sodium 139 mmol/L (132-148) 03/24/17 06:43 Potassium 4.3 mmol/L (3.6-5.2) 03/24/17 06:43 Chloride 105 mmol/L (98-107) 03/24/17 06:43 Carbon Dioxide 23 mmol/L (22-30) 03/24/17 06:43 Anion Gap 16 (10-20) 03/24/17 06:43 BUN 7 mg/dL (7-17) 03/24/17 06:43 Creatinine 0.7 MG/DL (0.7-1.2) 03/24/17 06:43 Est GFR ( Amer) > 60 03/24/17 06:43 Est GFR (Non-Af Amer) > 60 03/24/17 06:43 Random Glucose 80 mg/dL (65-105) 03/24/17 06:43 Calcium 9.1 mg/dl (8.6-10.4) 03/24/17 06:43 Phosphorus 3.5 mg/dL (2.5-4.5) 03/24/17 06:43 Magnesium 1.8 mg/dL (1.6-2.3) 03/24/17 06:43 Total Bilirubin 1.1 mg/dL (0.2-1.3) 03/24/17 06:43 AST 47 U/L (14-36) H D 03/24/17 06:43 ALT 40 U/L (9-52) 03/24/17 06:43 Alkaline Phosphatase 84 U/L (38-126) 03/24/17 06:43 Total Protein 6.8 g/dL (6.3-8.3) 03/24/17 06:43 Albumin 4.1 g/dL (3.5-5.0) 03/24/17 06:43 Globulin 2.7 gm/dL (2.2-3.9) 03/24/17 06:43 Albumin/Globulin Ratio 1.5 (1.0-2.1) 03/24/17 06:43 Lipase 79 U/L (23-300) 03/21/17 10:14 Procalcitonin < 0.05 NG/ML (0.19-0.49) L 03/21/17 16:50 Discharge Exam - Head Exam Head Exam: ATRAUMATIC, NORMOCEPHALIC Discharge Plan - Discharge Medications Prescriptions: Docusate [Colace] 100 mg PO TID #90 cap - Follow Up Plan Condition: FAIR Disposition: HOME/ ROUTINE Instructions: Bowel Obstruction (DC)
== END 2017-03-24 20:59 | disposition home or self-care (01) | DRG 390 ==
LOC: C.ER 09:46 → C.9E 12:38 → C.3T 13:24
PROVIDERS: ADMIT Hospitalist; ATTEND Hospitalist
DX: K56.60 Unspecified intestinal obstruction (principal); D72.819 Decreased white blood cell count, unspecified; K52.9 Noninfective gastroenteritis and colitis, unspecified; Z88.0 Allergy status to penicillin

== ENCOUNTER 2017-03-26 22:27 | Inpatient (IN) | payer MEDICARE ==
[2017-03-26] MEDS ORDERED: Sodium Chloride 0.9% 1,000 ML IV ONE (22:59)
--- NOTE | 2017-03-26 22:59 | C.PDOC ---
History Of Present Illness Patient presents to the ED with complaints of abdominal pain, bloating, and nausea since yesterday. Patient was seen in ED yesterday and had work up performed to rule out small bowel obstruction versus Ileus. Patient was able to tolerate PO and discharged home but symptoms worsened. She had one episode of vomiting in ED and denies fever or chills. Time Seen by Provider: 03/26/17 22:59 Chief Complaint (Nursing): Abdominal Pain History Per: Patient History/Exam Limitations: no limitations Onset/Duration Of Symptoms: Days, Worse Since (today ) Current Symptoms Are (Timing): Still Present Severity: Mild Pain Scale Rating Of: 4 Location Of Pain/Discomfort: Diffuse Radiation Of Pain To:: None Quality Of Discomfort: "Pain" Associated Symptoms: Vomiting. denies: Fever, Chills Exacerbating Factors: None Alleviating Factors: None Recent travel outside of the [place]: No Additional History Per: Prior Records Abnormal Vaginal Bleeding: No Past Medical History Reviewed: Historical Data, Nursing Documentation, Vital Signs Vital Signs: Last Vital Signs Temp 98.0 F 03/26/17 22:53 Pulse 71 03/26/17 22:53 Resp 18 03/26/17 22:53 BP 186/85 H 03/27/17 02:00 Pulse Ox 100 03/27/17 03:36 Family History: States: Unknown Family Hx - Social History Hx Alcohol Use: No Hx Substance Use: No - Immunization History Hx Tetanus Toxoid Vaccination: No Hx Influenza Vaccination: No Hx Pneumococcal Vaccination: No Review Of Systems Constitutional: Negative for: Fever, Chills Cardiovascular: Negative for: Chest Pain Respiratory: Negative for: Cough, Shortness of Breath Gastrointestinal: Positive for: Vomiting, Abdominal Pain. Negative for: Diarrhea Physical Exam - Physical Exam Appears: Non-toxic, No Acute Distress Skin: Warm, Dry Oral Mucosa: Moist Neck: Supple Chest: Symmetrical, No Deformity Cardiovascular: Rhythm Regular, No Murmur Respiratory: No Rales, No Rhonchi, No Wheezing Gastrointestinal/Abdominal: Soft, Tenderness (diffuse mild tenderness), No Distention, No Guarding, No Rebound, Other (Tympanic to percussion) Extremity: Normal ROM, No Tenderness Neurological/Psych: Oriented x3 ED Course And Treatment - Laboratory Results Result Diagrams: 03/26/17 23:32 03/27/17 00:03 O2 Sat by Pulse Oximetry: 100 (RA) Pulse Ox Interpretation: Normal - Radiology CXR: Interpreted by Me, Viewed By Me CXR Interpretation: No: Infiltrates, Fracture, Pnemothorax - Other Rad obstr X-Ray: Interpreted by Me, Viewed By Me Interpretation: lots of stool, contrast. no obstr or free air Progress Note: 3:10 am pt resting comfortable. no further vomiting Disposition Discussed With Dr.: Yoan Bradley Comment: accepted the pt on his servic e and took over the care at 5:40 AM Doctor Will See Patient In The: Hospital Counseled Patient/Family Regarding: Studies Performed, Diagnosis - Disposition Disposition: HOME/ ROUTINE Disposition Time: 22:59 Condition: FAIR Forms: [facility] (Armenian) - POA Present On Arrival: None - Clinical Impression Clinical Impression: Abdominal pain, SBO (small bowel obstruction), Nausea, Vomiting - Scribe Statement The provider has reviewed the documentation as recorded by the Scribe Elisabet Glaser All medical record entries made by the Scribe were at my direction and personally dictated by me. I have reviewed the chart and agree that the record accurately reflects my personal performance of the history, physical exam, medical decision making, and the department course for this patient. I have also personally directed, reviewed, and agree with the discharge instructions and disposition. Decision To Admit - Pt Status Changed To: Hospital Disposition Of: Inpatient - Admit Certification Admit to Inpatient:: After my assessment, the patient will require hospitalization for at least two midnights. This is because of the severity of symptoms shown, intensity of services needed, and/or the medical risk in this patient being treated as an outpatient. - InPatient: Physician Admission Certification:: After my assessment, the patient will require hospitalization for at least two midnights. This is because of the severity of symptoms shown, intensity of services needed, and/or the medical risk in this patient being treated as an outpatient. - . Bed Request Type: Regular Admitting Physician: Yoan Bradley Patient Diagnosis: Abdominal pain, SBO (small bowel obstruction), Nausea, Vomiting
[2017-03-26 23:35] LABS: BASO % 0.2 % (0.0-2.0); EOS % 0.2 % (0.0-4.0); HEMATOCRIT 47.5 % (34.0-47.0); LYMPH # 0.6 K/uL (1.0-4.3); LYMPH % 8.3 % (20.0-40.0); MEAN CELL VOLUME 91.1 fL (81.0-99.0); MEAN CORPUSCULAR HEMOGLOBIN 30.3 pg (27.0-31.0); MEAN CORPUSCULAR HGB CONC 33.2 g/dL (33.0-37.0); MEAN PLATELET VOLUME 9.8 fL (7.2-11.7); MONO # 0.3 K/uL (0.0-0.8); MONO % 3.9 % (0.0-10.0); PLATELET COUNT 226 K/uL (130-400); RED CELL DISTRIBUTION WIDTH 13.3 % (11.5-14.5); WHITE BLOOD COUNT 7.7 K/uL (4.8-10.8)
[2017-03-27 00:18] LABS: ALB/GLOB RATIO 1.8 (1.0-2.1); ALKALINE PHOSPHATASE 73 U/L (38-126); ALT/SGPT 69 U/L (9-52); AST/SGOT 77 U/L (14-36); BILIRUBIN,TOTAL 0.7 mg/dL (0.2-1.3); BLOOD UREA NITROGEN 7 mg/dL (7-17); CALCIUM 8.5 mg/dl (8.6-10.4); CARBON DIOXIDE 19 mmol/L (22-30); CHLORIDE 101 mmol/L (98-107); GFR AFRICAN-AMERICAN > 60; GLUCOSE,RANDOM 95 mg/dL (65-105); POTASSIUM 3.7 mmol/L (3.6-5.2); SODIUM 134 mmol/L (132-148); TOTAL PROTEIN 6.2 g/dL (6.3-8.3)
[2017-03-27] MEDS ORDERED: Sodium Chloride 0.9% 1,000 ML ONE ×2 (00:21→02:01)
--- NOTE | 2017-03-27 01:02 | CP.PCM.CON ---
<Jeniffer Hinkle - Last Filed: 03/27/17 01:09> History of Present Illness - History of Present Illness History of Present Illness: GENERAL SURGERY CONSULT NOTE FOR DR. AVILES 67yo F with PMHx of autoimmune disease and recent admission for SBO presents to the ED with abdominal pain, bloating, and vomiting. She was discharged from the hospital on Friday night. She states that she was fine most of Friday with a few small bowel movements but that evening she "felt blocked". Friday morning , she had bloating and diffuse abdominal pain. She describes the pain as dull, pressure, bloating. She vomited once today. Her last flatus was this AM and her last BM was this AM and it was very small, soft and loose, with mucus. She denies blood. She also reports associated chills. She was previously admitted on 03/21/17 for SBO possibly secondary to enteritis which was treated conservatively with NPO, IV fluids and antibiotics. She was discharged home on 03/24/17 after having a bowel movement and a repeat CT on showed resolution of dilated small bowel. She was given a prescription for colace and recommended to have outpatient colonoscopy. PMHx: unspecified autoimmune disease Surgeries: colonoscopy Allergies: penicillins Review of Systems - Review of Systems All systems: reviewed and no additional remarkable complaints except (as per HPI ) Past Patient History - Infectious Disease Hx of Infectious Diseases: None - Past Medical History & Family History Past Medical History?: No - Past Social History Smoking Status: Never Smoked - CARDIAC Hx Cardiac Disorders: No - PULMONARY Hx Respiratory Disorders: No - NEUROLOGICAL Hx Neurological Disorder: No - HEENT Hx HEENT Problems: No - RENAL Hx Chronic Kidney Disease: No - ENDOCRINE/METABOLIC Hx Endocrine Disorders: No - HEMATOLOGICAL/ONCOLOGICAL Hx Blood Disorders: No - INTEGUMENTARY Hx Dermatological Problems: No - MUSCULOSKELETAL/RHEUMATOLOGICAL Hx Musculoskeletal Disorders: No Hx Falls: No - GASTROINTESTINAL Hx Gastrointestinal Disorders: No - GENITOURINARY/GYNECOLOGICAL Hx Genitourinary Disorders: No - PSYCHIATRIC Hx Substance Use: No - SURGICAL HISTORY Hx Surgeries: No - ANESTHESIA Hx Anesthesia: No Meds Allergies/Adverse Reactions: Allergies Allergy/AdvReac Type Severity Reaction Status Date / Time Penicillins Allergy SHORTNESS Verified 03/26/17 22:57 OF BREATH - Medications Medications: Current Medications Sodium Chloride (Sodium Chloride 0.9%) 1,000 mls @ 100 mls/hr IV .Q10H ONE Stop: 03/27/17 08:58 Last Admin: 03/27/17 00:23 Dose: 100 mls/hr Physical Exam - Constitutional Appears: Well, Non-toxic, No Acute Distress - Head Exam Head Exam: ATRAUMATIC, NORMAL INSPECTION - Eye Exam Eye Exam: EOMI, Normal appearance - Neck Exam Neck exam: Positive for: Normal Inspection - Respiratory Exam Respiratory Exam: NORMAL BREATHING PATTERN. absent: Respiratory Distress - Cardiovascular Exam Cardiovascular Exam: +S1, +S2 - GI/Abdominal Exam GI & Abdominal Exam: Soft, Tenderness (very mild tenderess in lower abdomen). absent: Distended, Firm, Guarding, Rebound, Rigid - Neurological Exam Neurological exam: Alert, CN II-XII Intact, Oriented x3 - Psychiatric Exam Psychiatric exam: Normal Affect, Normal Mood - Skin Skin Exam: Dry, Normal Color, Warm Results - Vital Signs Recent Vital Signs: Last Vital Signs Temp 98.0 F 03/26/17 22:53 Pulse 71 03/26/17 22:53 Resp 18 03/26/17 22:53 BP 167/82 H 03/26/17 22:53 Pulse Ox 100 03/27/17 00:21 - Labs Result Diagrams: 03/26/17 23:32 03/27/17 00:03 Labs: Laboratory Results - last 24 hr 03/26/17 03/26/17 03/27/17 23:32 23:32 00:03 WBC 7.7 D RBC 5.21 H Hgb 15.8 D Hct 47.5 H MCV 91.1 MCH 30.3 MCHC 33.2 RDW 13.3 Plt Count 226 MPV 9.8 Neut % (Auto) 87.4 H Lymph % (Auto) 8.3 L [place] % (Auto) 3.9 Eos % (Auto) 0.2 Baso % (Auto) 0.2 Neut # 6.7 Lymph # 0.6 L [place] # 0.3 Eos # 0.0 Baso # 0.0 PT 11.3 INR 1.0 APTT 30 Sodium 134 Potassium 3.7 Chloride 101 Carbon Dioxide 19 L Anion Gap 18 BUN 7 Creatinine 0.4 L Est GFR ( Amer) > 60 Est GFR (Non-Af Amer) > 60 Random Glucose 95 Calcium 8.5 L Total Bilirubin 0.7 AST 77 H D ALT 69 H D Alkaline Phosphatase 73 Total Protein 6.2 L Albumin 4.0 Globulin 2.2 Albumin/Globulin Ratio 1.8 Lipase 71 Assessment & Plan - Assessment and Plan (Free Text) Assessment: 67yo F with PMHx of autoimmune disease and recent admission for SBO presents with abdominal pain, bloating, and vomiting and was admitted for ileus vs SBO - Afebrile, VSS - No leukocytosis - Slight increase in LFTs - Obstructive series done - NPO - IV fluids - Pain management - Zofran - Will discuss plan with Dr. Traci Hinkle PGY-3 <Mannie Aviles - Last Filed: 03/30/17 21:47> Results - Vital Signs Recent Vital Signs: Last Vital Signs Temp 98.9 F 03/28/17 00:00 Pulse 64 03/28/17 00:00 Resp 20 03/28/17 00:00 BP 184/76 H 03/28/17 00:00 Pulse Ox 97 03/28/17 00:00 - Labs Result Diagrams: 03/28/17 05:14 03/28/17 05:14 Attending/Attestation - Attestation I have personally seen and examined this patient.: Yes I have fully participated in the care of the patient.: Yes I have reviewed all pertinent clinical information: Yes Notes (Text): 03/30/17 21:46 Pt was seen and examined at bedside Agree with above note and assessment Pt with PSBO recurrent NG to LIS AXR in am C.w IV antibiotics empirically NPO, IVF Plan d.w pt in detail.
[2017-03-27] MEDS: Sodium Chloride 0.9% 1,000 ML IV SCH ×3 (02:06→20:29)
[2017-03-27 02:33] LABS: EOSINOPHIL 1 % (0-4); NEUTROPHIL 86 % (50-75); TOTAL CELLS COUNTED 100
[2017-03-27 09:34] VITALS: RESP 20
--- NOTE | 2017-03-27 09:36 | RAD ---
PROCEDURE: Radiographs of the chest and abdomen (obstructive series) HISTORY: abd pain, sbo COMPARISON: 03/24/2017 obstructive series. A 03/24/2017 CT abdomen and pelvic exam is also noted. No prior. TECHNIQUE: AP radiograph of the chest, with upright and supine radiographs of the abdomen. FINDINGS: CHEST: Lungs: Clear. No consolidation Prominent nipple shadows are suggested right much more than left Cardiovascular: Normal size heart. No pulmonary vascular congestion. Pleura: No pleural fluid. No pneumothorax. Other findings: None. ABDOMEN AND PELVIS: Bowel: The prior small bowel dilatation is now less. A few nonspecific air-fluid levels in mid small bowel loops are noted on specific findings. There is no colonic distension present. Colonic contrast present from preceding CT No evidence of mechanical obstruction. Free air: None. Bones: Unremarkable. Other findings: None. IMPRESSION: Interval decrease small-bowel loops consistent with a resolving small-bowel obstruction or prior enteritis. No evidence of mechanical bowel obstruction.
[2017-03-27] MEDS: Ciprofloxacin 400mg/200ml D5W 400 MG/200 ML BAG IVPB SCH ×2 (11:04→20:51)
--- NOTE | 2017-03-27 13:24 | RAD ---
HISTORY: ngt placement COMPARISON: Obstructive series performed 03/26/17 TECHNIQUE: Chest, one view. FINDINGS: Nasogastric tube extends expected location of the stomach. LUNGS: No focal consolidation. Please note that chest x-ray has limited sensitivity for the detection of pulmonary masses. PLEURA: No significant pleural effusion identified. No definite pneumothorax . CARDIOVASCULAR: Heart size appears within normal limits. OSSEOUS STRUCTURES: No acute osseous abnormality identified. VISUALIZED UPPER ABDOMEN: Residual contrast is noted within bowel loops in the left upper quadrant. OTHER FINDINGS: None. IMPRESSION: Nasogastric tube extends to the expected location of the stomach.
[2017-03-27] MEDS ORDERED: Lidocaine 4% (Laryng-O-Jet) Kit MM PRN (15:12)
[2017-03-27 16:11] VITALS: PULSE 64
--- NOTE | 2017-03-27 17:51 | CP.PCM.CON ---
History of Present Illness - History of Present Illness History of Present Illness: This is a 67 year old woman, recently discharged from the hospital, readmitted with abdominal pain, nausea and vomiting. Patient was admitted 03/21/17 with upper abdominal bloating/discomfort for the four or five days prior to admission. CT scan was suggestive of SBO or ileus, and she was admitted. She improved over the weekend and was able to tolerate a regular diet. Repeat CT scan showed resolution of the SB distention, and she was discharged. She did well at home for approximately 24 hours, then noted recurrent upper abdominal pain described as cramping/pressure. In addition, she was nauseated and vomited twice. She had small, formed stools up until her presentation to the ER. She denies having heartburn, difficulty swallowing, recent loss of appetite or loss of weight. She has not had rectal bleeding in the recent past. Her last colonoscopy was eight years ago and was normal. Review of Systems - Review of Systems All systems: reviewed and no additional remarkable complaints except - Constitutional Constitutional: absent: Chills, Fever - Cardiovascular Cardiovascular: absent: Chest Pain - Respiratory Respiratory: absent: Cough, Dyspnea - Gastrointestinal Gastrointestinal: Abdominal Pain, Nausea, Vomiting. absent: Dysphagia, Heartburn, Hematochezia Past Patient History - Infectious Disease Hx of Infectious Diseases: None - Past Medical History & Family History Past Medical History?: No - Past Social History Smoking Status: Never Smoked - CARDIAC Hx Cardiac Disorders: No - PULMONARY Hx Respiratory Disorders: No - NEUROLOGICAL Hx Neurological Disorder: No - HEENT Hx HEENT Problems: No - RENAL Hx Chronic Kidney Disease: No - ENDOCRINE/METABOLIC Hx Endocrine Disorders: No - HEMATOLOGICAL/ONCOLOGICAL Hx Blood Disorders: No - INTEGUMENTARY Hx Dermatological Problems: No - MUSCULOSKELETAL/RHEUMATOLOGICAL Hx Falls: No - GASTROINTESTINAL Hx Gastrointestinal Disorders: Yes Hx Colostomy: Yes Other/Comment: small bowel obstruction - GENITOURINARY/GYNECOLOGICAL Hx Genitourinary Disorders: No - PSYCHIATRIC Hx Substance Use: No - SURGICAL HISTORY Hx Surgeries: No - ANESTHESIA Hx Anesthesia: No Meds Allergies/Adverse Reactions: Allergies Allergy/AdvReac Type Severity Reaction Status Date / Time Penicillins Allergy SHORTNESS Verified 03/26/17 22:57 OF BREATH - Medications Medications: Current Medications Sodium Chloride (Sodium Chloride 0.9%) 1,000 mls @ 90 mls/hr IV .Q11H7M [facility] Last Admin: 03/27/17 12:46 Dose: Not Given Ciprofloxacin (Cipro 400mg/200ml Dsw) 400 mg in 200 mls @ 133 mls/hr IVPB Q12H [facility] Last Admin: 03/27/17 11:04 Dose: 133 mls/hr Influenza Virus Vaccine (Afluria) 45 mcg IM .ONCE ONE Stop: 03/30/17 10:01 Lidocaine HCl (Ndvgzs-X-Ggh) 2 ml MM DAILY PRN PRN Reason: Pain, moderate (4-7) Morphine Sulfate (Morphine) 2 mg IVP Q4 PRN PRN Reason: Pain, moderate (4-7) Last Admin: 03/27/17 02:06 Dose: 2 mg Ondansetron HCl (Zofran Inj) 4 mg IVP Q4 PRN PRN Reason: Nausea/Vomiting Last Admin: 03/27/17 12:17 Dose: 4 mg Pantoprazole Sodium (Protonix Inj) 40 mg IVP DAILY [facility] Last Admin: 03/27/17 14:25 Dose: 40 mg Physical Exam - Constitutional Appears: No Acute Distress - Head Exam Head Exam: ATRAUMATIC, NORMOCEPHALIC - Eye Exam Eye Exam: EOMI, PERRL - Neck Exam Neck exam: Negative for: Lymphadenopathy, Thyromegaly - Respiratory Exam Respiratory Exam: NORMAL BREATHING PATTERN. absent: Rales, Rhonchi, Wheezes - Cardiovascular Exam Cardiovascular Exam: REGULAR RHYTHM, +S1, +S2. absent: Gallop, Rubs, Systolic Murmur - GI/Abdominal Exam GI & Abdominal Exam: Distended, Normal Bowel Sounds, Soft. absent: Organomegaly , Tenderness - Rectal Exam Rectal Exam: Deferred - Extremities Exam Extremities exam: Negative for: calf tenderness, pedal edema Results - Vital Signs Recent Vital Signs: Last Vital Signs Temp 97.7 F 03/27/17 16:11 Pulse 64 03/27/17 16:11 Resp 20 03/27/17 16:11 BP 155/76 H 03/27/17 16:11 Pulse Ox 99 03/27/17 16:11 - Labs Result Diagrams: 03/26/17 23:32 03/27/17 00:03 Labs: Laboratory Results - last 24 hr 03/26/17 03/26/17 03/27/17 23:32 23:32 00:03 WBC 7.7 D RBC 5.21 H Hgb 15.8 D Hct 47.5 H MCV 91.1 MCH 30.3 MCHC 33.2 RDW 13.3 Plt Count 226 MPV 9.8 Neut % (Auto) 87.4 H Lymph % (Auto) 8.3 L Becker % (Auto) 3.9 Eos % (Auto) 0.2 Baso % (Auto) 0.2 Neut # 6.7 Lymph # 0.6 L Becker # 0.3 Eos # 0.0 Baso # 0.0 Neutrophils % (Manual) 86 H Band Neutrophils % 1 Lymphocytes % (Manual) 8 L Monocytes % (Manual) 4 Eosinophils % (Manual) 1 Platelet Estimate Normal PT 11.3 INR 1.0 APTT 30 Sodium 134 Potassium 3.7 Chloride 101 Carbon Dioxide 19 L Anion Gap 18 BUN 7 Creatinine 0.4 L Est GFR ( Amer) > 60 Est GFR (Non-Af Amer) > 60 Random Glucose 95 Calcium 8.5 L Total Bilirubin 0.7 AST 77 H D ALT 69 H D Alkaline Phosphatase 73 Total Protein 6.2 L Albumin 4.0 Globulin 2.2 Albumin/Globulin Ratio 1.8 Lipase 71 Assessment & Plan (1) SBO (small bowel obstruction) Assessment and Plan: Patient presents with recurrent pain, nausea and vomiting after a recent admission for similar symptoms. Agree with plans for small bowel series or CT enterography. Status: Acute
--- NOTE | 2017-03-27 20:44 | CP.PCM.HP ---
Past Patient History - Infectious Disease Hx of Infectious Diseases: None - Past Medical History & Family History Past Medical History?: No - Past Social History Smoking Status: Never Smoked - CARDIAC Hx Cardiac Disorders: No - PULMONARY Hx Respiratory Disorders: No - NEUROLOGICAL Hx Neurological Disorder: No - HEENT Hx HEENT Problems: No - RENAL Hx Chronic Kidney Disease: No - ENDOCRINE/METABOLIC Hx Endocrine Disorders: No - HEMATOLOGICAL/ONCOLOGICAL Hx Blood Disorders: No - INTEGUMENTARY Hx Dermatological Problems: No - MUSCULOSKELETAL/RHEUMATOLOGICAL Hx Falls: No - GASTROINTESTINAL Hx Gastrointestinal Disorders: Yes Hx Colostomy: Yes Other/Comment: small bowel obstruction - GENITOURINARY/GYNECOLOGICAL Hx Genitourinary Disorders: No - PSYCHIATRIC Hx Substance Use: No - SURGICAL HISTORY Hx Surgeries: No - ANESTHESIA Hx Anesthesia: No Meds Allergies/Adverse Reactions: Allergies Allergy/AdvReac Type Severity Reaction Status Date / Time Penicillins Allergy SHORTNESS Verified 03/26/17 22:57 OF BREATH Physical Exam - Constitutional Appears: Well - Head Exam Head Exam: ATRAUMATIC, NORMAL INSPECTION, NORMOCEPHALIC - Eye Exam Eye Exam: EOMI, Normal appearance, PERRL Pupil Exam: NORMAL ACCOMODATION, PERRL - ENT Exam ENT Exam: Mucous Membranes Moist, Normal Exam - Neck Exam Neck exam: Positive for: Normal Inspection - Respiratory Exam Respiratory Exam: Decreased Breath Sounds - Cardiovascular Exam Cardiovascular Exam: REGULAR RHYTHM, +S1, +S2 - GI/Abdominal Exam GI & Abdominal Exam: Diminished Bowel Sounds, Soft - Rectal Exam Rectal Exam: Deferred Results - Vital Signs Recent Vital Signs: Last Vital Signs Temp 97.7 F 03/27/17 16:11 Pulse 64 03/27/17 16:11 Resp 20 03/27/17 16:11 BP 155/76 H 03/27/17 16:11 Pulse Ox 99 03/27/17 16:11 - Labs Result Diagrams: 03/26/17 23:32 03/27/17 00:03 Labs: Laboratory Results - last 24 hr 03/26/17 03/26/17 03/27/17 23:32 23:32 00:03 WBC 7.7 D RBC 5.21 H Hgb 15.8 D Hct 47.5 H MCV 91.1 MCH 30.3 MCHC 33.2 RDW 13.3 Plt Count 226 MPV 9.8 Neut % (Auto) 87.4 H Lymph % (Auto) 8.3 L [place] % (Auto) 3.9 Eos % (Auto) 0.2 Baso % (Auto) 0.2 Neut # 6.7 Lymph # 0.6 L [place] # 0.3 Eos # 0.0 Baso # 0.0 Neutrophils % (Manual) 86 H Band Neutrophils % 1 Lymphocytes % (Manual) 8 L Monocytes % (Manual) 4 Eosinophils % (Manual) 1 Platelet Estimate Normal PT 11.3 INR 1.0 APTT 30 Sodium 134 Potassium 3.7 Chloride 101 Carbon Dioxide 19 L Anion Gap 18 BUN 7 Creatinine 0.4 L Est GFR ( Amer) > 60 Est GFR (Non-Af Amer) > 60 Random Glucose 95 Calcium 8.5 L Total Bilirubin 0.7 AST 77 H D ALT 69 H D Alkaline Phosphatase 73 Total Protein 6.2 L Albumin 4.0 Globulin 2.2 Albumin/Globulin Ratio 1.8 Lipase 71
[2017-03-28 02:09] VITALS: BP 184/76; TEMP 98.9; O2SAT 97
[2017-03-28 05:20] LABS: MEAN CELL VOLUME 89.5 fL (81.0-99.0); MEAN CORPUSCULAR HEMOGLOBIN 30.7 pg (27.0-31.0); MEAN CORPUSCULAR HGB CONC 34.3 g/dL (33.0-37.0); MEAN PLATELET VOLUME 9.5 fL (7.2-11.7); RED CELL DISTRIBUTION WIDTH 13.3 % (11.5-14.5); WHITE BLOOD COUNT 6.9 K/uL (4.8-10.8)
[2017-03-28 05:24] LABS: CHLORIDE 103 mmol/L (98-107)
[2017-03-28 05:25] LABS: POTASSIUM 3.4 mmol/L (3.6-5.2); SODIUM 139 mmol/L (132-148)
[2017-03-28 05:27] LABS: ALB/GLOB RATIO 1.3 (1.0-2.1); AST/SGOT 51 U/L (14-36); BILIRUBIN,TOTAL 0.8 mg/dL (0.2-1.3); BLOOD UREA NITROGEN 6 mg/dL (7-17); CARBON DIOXIDE 23 mmol/L (22-30); GFR AFRICAN-AMERICAN > 60; TOTAL PROTEIN 5.6 g/dL (6.3-8.3)
[2017-03-28 05:28] LABS: ALKALINE PHOSPHATASE 57 U/L (38-126); ALT/SGPT 62 U/L (9-52); CALCIUM 8.3 mg/dl (8.6-10.4); GLUCOSE,RANDOM 85 mg/dL (65-105)
--- NOTE | 2017-03-28 08:09 | RAD ---
HISTORY: re-evaluate SBO COMPARISON: No prior. FINDINGS: BOWEL: Residual oral contrast seen in the abdomen likely from recent study. No evidence of small bowel obstruction. The NG tube seen extending to the stomach. BONES: Normal. OTHER FINDINGS: None. IMPRESSION: Residual oral contrast seen in the large bowel. No evidence of high-grade small bowel obstruction. Slightly dilated small bowel loops at the left upper abdomen. The NG tube is seen at appropriate position.
--- NOTE | 2017-03-28 08:20 | CP.PCM.PN ---
Addendum entered and electronically signed by Je Beckham DO 03/28/17 16: 31: pt had 3 BMs D/C NGT Start FLD if tolerates, clear for d/c remain on FLD for 7-10 days, f/u with GI doc Original Note: <Sari Sánchez - Last Filed: 03/28/17 08:20> Subjective - Date & Time of Evaluation Date of Evaluation: 03/28/17 Time of Evaluation: 08:18 - Subjective Subjective: Surgery Pt s&e. Pain controlled. Denies F/C/D/Cp/SOB. + amb. NGT in place. Pt had vomiting yesterday. Non bloody. + avoid. last BM was fri. -Flatus. Objective - Vital Signs/Intake and Output Vital Signs (last 24 hours): Temp Pulse Resp BP Pulse Ox 98.9 F 64 20 184/76 H 97 03/28/17 00:00 03/28/17 00:00 03/28/17 00:00 03/28/17 00:00 03/28/17 00:00 - Medications Medications: Current Medications Enoxaparin Sodium (Lovenox) 40 mg SC DAILY [facility] Sodium Chloride (Sodium Chloride 0.9%) 1,000 mls @ 90 mls/hr IV .Q11H7M [facility] Last Admin: 03/27/17 20:29 Dose: 90 mls/hr Ciprofloxacin (Cipro 400mg/200ml Dsw) 400 mg in 200 mls @ 133 mls/hr IVPB Q12H [facility] Last Admin: 03/27/17 20:51 Dose: 133 mls/hr Potassium Chloride/Dextrose (Potassium Chl 20 Meq In D5w) 1,000 mls @ 100 mls/ hr IV .Q10H [facility] Influenza Virus Vaccine (Afluria) 45 mcg IM .ONCE ONE Stop: 03/30/17 10:01 Ketorolac Tromethamine (Toradol) 15 mg IVP Q6 PRN PRN Reason: Pain, severe (8-10) Lidocaine HCl (Rmnyqm-L-Uby) 2 ml MM DAILY PRN PRN Reason: Pain, moderate (4-7) Ondansetron HCl (Zofran Inj) 4 mg IVP Q4 PRN PRN Reason: Nausea/Vomiting Last Admin: 03/27/17 12:17 Dose: 4 mg Pantoprazole Sodium (Protonix Inj) 40 mg IVP DAILY [facility] Last Admin: 03/27/17 14:25 Dose: 40 mg - Labs Labs: 03/28/17 05:14 03/28/17 05:14 PT 11.3 SECONDS (9.7-12.2) 03/26/17 23:32 INR 1.0 03/26/17 23:32 APTT 30 SECONDS (21-34) 03/26/17 23:32 - Constitutional Appears: No Acute Distress - Head Exam Head Exam: ATRAUMATIC, NORMAL INSPECTION, NORMOCEPHALIC - Eye Exam Eye Exam: EOMI, Normal appearance, PERRL Pupil Exam: NORMAL ACCOMODATION, PERRL - ENT Exam ENT Exam: Mucous Membranes Moist, Normal Exam - Neck Exam Neck Exam: Full ROM, Normal Inspection. absent: Lymphadenopathy - Respiratory Exam Respiratory Exam: Clear to Ausculation Bilateral, NORMAL BREATHING PATTERN - Cardiovascular Exam Cardiovascular Exam: REGULAR RHYTHM, +S1, +S2. absent: Murmur - GI/Abdominal Exam GI & Abdominal Exam: Soft, Normal Bowel Sounds. absent: Distended, Firm, Guarding, Rigid, Tenderness, Rebound - Exam Exam: Circumcision, NORMAL INSPECTION - Extremities Exam Extremities Exam: Full ROM, Normal Capillary Refill, Normal Inspection. absent : Joint Swelling, Pedal Edema - Back Exam Back Exam: NORMAL INSPECTION - Neurological Exam Neurological Exam: Alert, Awake, CN II-XII Intact, Normal Gait, Oriented x3 - Psychiatric Exam Psychiatric exam: Normal Affect, Normal Mood - Skin Skin Exam: Dry, Intact, Normal Color, Warm Assessment and Plan - Assessment and Plan (Free Text) Assessment: Ileus v SBO KUB: contast seen in colon -NGT -NPO -IVF -Serial abd exam. -Await bowel function WIll DW Dr. Aviles <Mannie Aviles - Last Filed: 03/30/17 21:27> Objective - Vital Signs/Intake and Output Vital Signs (last 24 hours): Temp Pulse Resp BP Pulse Ox 98.9 F 64 20 184/76 H 97 03/28/17 00:00 03/28/17 00:00 03/28/17 00:00 03/28/17 00:00 03/28/17 00:00 - Labs Labs: 03/28/17 05:14 03/28/17 05:14 PT 11.3 SECONDS (9.7-12.2) 03/26/17 23:32 INR 1.0 03/26/17 23:32 APTT 30 SECONDS (21-34) 03/26/17 23:32 Attending/Attestation - Attestation I have personally seen and examined this patient.: Yes I have fully participated in the care of the patient.: Yes I have reviewed all pertinent clinical information, including history, physical exam and plan: Yes Notes (Text): 03/30/17 21:26 Pt was seen and examined at bedside Agree with above note and assessment Pt with resolving PSBO AXR reviewed. Give Fleet enema If BM, Advance diet to full liquid diet Plan d.w pt in detail
--- NOTE | 2017-03-28 08:28 | CP.PCM.PN ---
Subjective - Date & Time of Evaluation Date of Evaluation: 03/28/17 Time of Evaluation: 08:23 - Subjective Subjective: Patient complains of persistent, diffuse, cramping abdominal pain. She denies having nausea, vomiting today. She has not passed any stool or flatus. Objective - Vital Signs/Intake and Output Vital Signs (last 24 hours): Temp Pulse Resp BP Pulse Ox 98.9 F 64 20 184/76 H 97 03/28/17 00:00 03/28/17 00:00 03/28/17 00:00 03/28/17 00:00 03/28/17 00:00 - Medications Medications: Current Medications Enoxaparin Sodium (Lovenox) 40 mg SC DAILY [facility] Sodium Chloride (Sodium Chloride 0.9%) 1,000 mls @ 90 mls/hr IV .Q11H7M [facility] Last Admin: 03/27/17 20:29 Dose: 90 mls/hr Ciprofloxacin (Cipro 400mg/200ml Dsw) 400 mg in 200 mls @ 133 mls/hr IVPB Q12H [facility] Last Admin: 03/27/17 20:51 Dose: 133 mls/hr Potassium Chloride/Dextrose (Potassium Chl 20 Meq In D5w) 1,000 mls @ 100 mls/ hr IV .Q10H [facility] Influenza Virus Vaccine (Afluria) 45 mcg IM .ONCE ONE Stop: 03/30/17 10:01 Ketorolac Tromethamine (Toradol) 15 mg IVP Q6 PRN PRN Reason: Pain, severe (8-10) Lidocaine HCl (Ntlcqs-B-Dle) 2 ml MM DAILY PRN PRN Reason: Pain, moderate (4-7) Ondansetron HCl (Zofran Inj) 4 mg IVP Q4 PRN PRN Reason: Nausea/Vomiting Last Admin: 03/27/17 12:17 Dose: 4 mg Pantoprazole Sodium (Protonix Inj) 40 mg IVP DAILY [facility] Last Admin: 03/27/17 14:25 Dose: 40 mg - Labs Labs: 03/28/17 05:14 03/28/17 05:14 PT 11.3 SECONDS (9.7-12.2) 03/26/17 23:32 INR 1.0 03/26/17 23:32 APTT 30 SECONDS (21-34) 03/26/17 23:32 - Constitutional Appears: No Acute Distress - Head Exam Head Exam: ATRAUMATIC, NORMOCEPHALIC - Eye Exam Eye Exam: EOMI, PERRL - Neck Exam Neck Exam: absent: Lymphadenopathy, Thyromegaly - Respiratory Exam Respiratory Exam: NORMAL BREATHING PATTERN. absent: Rales, Rhonchi, Wheezes - Cardiovascular Exam Cardiovascular Exam: REGULAR RHYTHM, +S1, +S2. absent: Gallop, Rubs, Murmur - GI/Abdominal Exam GI & Abdominal Exam: Soft, Hypoactive Bowel Sounds. absent: Tenderness, Mass, Organomegaly - Rectal Exam Rectal Exam: Deferred - Extremities Exam Extremities Exam: absent: Calf Tenderness, Pedal Edema Assessment and Plan (1) SBO (small bowel obstruction) Assessment & Plan: Patient had vomiting yesterday and still has not passed any flatus. The KUB showes mildly dilated loops of small bowel in the LUQ. The clinical picture is consistent with recurrent SBO. Recommend surgery follow up. Status: Acute
[2017-03-28] MEDS: Ciprofloxacin 400mg/200ml D5W 400 MG/200 ML BAG IVPB SCH (08:40)
[2017-03-28] MEDS ORDERED: Enoxaparin 40 mg Syringe SC SCH (10:00)
[2017-03-28] MEDS: Sodium Chloride 0.9% 1,000 ML IV SCH (10:38)
[2017-03-28] MEDS: Potassium Ch 20mEq in D5W 1,000 ML IV SCH ×2 (11:32→19:02)
--- NOTE | 2017-03-28 14:29 | CARD ---
APPROVED REPORT EKG Measurement Heart [id number] OR [id number] <Conclusion> Sinus bradycardia Otherwise normal ECG
--- NOTE | 2017-03-28 16:41 | CP.PCM.PN ---
Subjective - Date & Time of Evaluation Date of Evaluation: 03/28/17 Time of Evaluation: 09:00 - Subjective Subjective: clinically same Objective - Vital Signs/Intake and Output Vital Signs (last 24 hours): Temp Pulse Resp BP Pulse Ox 98.9 F 64 20 184/76 H 97 03/28/17 00:00 03/28/17 00:00 03/28/17 00:00 03/28/17 00:00 03/28/17 00:00 - Medications Medications: Current Medications Enoxaparin Sodium (Lovenox) 40 mg SC DAILY [facility] Last Admin: 03/28/17 11:32 Dose: Not Given Sodium Chloride (Sodium Chloride 0.9%) 1,000 mls @ 90 mls/hr IV .Q11H7M [facility] Last Admin: 03/28/17 10:38 Dose: Not Given Ciprofloxacin (Cipro 400mg/200ml Dsw) 400 mg in 200 mls @ 133 mls/hr IVPB Q12H [facility] Last Admin: 03/28/17 08:40 Dose: 133 mls/hr Potassium Chloride/Dextrose (Potassium Chl 20 Meq In D5w) 1,000 mls @ 100 mls/ hr IV .Q10H [facility] Last Admin: 03/28/17 11:32 Dose: 100 mls/hr Ketorolac Tromethamine (Toradol) 15 mg IVP Q6 PRN PRN Reason: Pain, severe (8-10) Lidocaine HCl (Opmyyn-K-Wfn) 2 ml MM DAILY PRN PRN Reason: Pain, moderate (4-7) Ondansetron HCl (Zofran Inj) 4 mg IVP Q4 PRN PRN Reason: Nausea/Vomiting Last Admin: 03/27/17 12:17 Dose: 4 mg Pantoprazole Sodium (Protonix Inj) 40 mg IVP DAILY [facility] Last Admin: 03/28/17 11:37 Dose: Not Given Sodium Phosphate (Fleet Enema) 135 ml TN Q8 [facility] Last Admin: 03/28/17 12:18 Dose: 135 ml - Labs Labs: 03/28/17 05:14 03/28/17 05:14 PT 11.3 SECONDS (9.7-12.2) 03/26/17 23:32 INR 1.0 03/26/17 23:32 APTT 30 SECONDS (21-34) 03/26/17 23:32 - Constitutional Appears: Well - Head Exam Head Exam: ATRAUMATIC, NORMAL INSPECTION, NORMOCEPHALIC - Eye Exam Eye Exam: EOMI, Normal appearance, PERRL Pupil Exam: NORMAL ACCOMODATION, PERRL - ENT Exam ENT Exam: Mucous Membranes Moist, Normal Exam - Neck Exam Neck Exam: Full ROM, Normal Inspection. absent: Lymphadenopathy - Respiratory Exam Respiratory Exam: Decreased Breath Sounds - Cardiovascular Exam Cardiovascular Exam: REGULAR RHYTHM, +S1, +S2 - GI/Abdominal Exam GI & Abdominal Exam: Soft, Diminished Bowel Sounds - Rectal Exam Rectal Exam: Deferred
[2017-03-28] MEDS ORDERED: Potassium Chloride 20 mEq ER Tab PO STA (19:33)
[2017-03-30] MEDS ORDERED: Influenza Virus Vaccine (Afluria Inactive dont use ) IM ONE (10:00)
[2017-03-30] MEDS ORDERED: Influenza Vaccine 60 mcg/0.5 mL SYR (4YR UP) IM ONE (13:00)
== END 2017-03-28 21:45 | disposition left against medical advice (07) | DRG 390 ==
LOC: C.ER 22:27 → C.9E 03-27 05:39 → C.5S 03-27 09:04 → C.3T 03-28 15:13
PROVIDERS: ADMIT Internal Medicine Nephrology; ATTEND Internal Medicine Nephrology
DX: K56.60 Unspecified intestinal obstruction (principal); Z93.3 Colostomy status

== ENCOUNTER 2018-08-20 02:23 | Emergency (ER) | payer MEDICARE ==
[2018-08-20 02:50] VITALS: RESP 20; O2SAT 97
--- NOTE | 2018-08-20 03:07 | C.PDOC ---
History Of Present Illness 68 year old female reports having burning and swelling sensation in her throat. Patient states her symptoms are due to her neighbor who is drilling holes into her kitchen wall and sending fumes into her apartment. Denies fever, chest pain, nausea, or vomiting. Time Seen by Provider: 08/20/18 02:34 Chief Complaint (Nursing): Cough, Cold, Congestion History Per: Patient History/Exam Limitations: no limitations Onset/Duration Of Symptoms: Hrs Current Symptoms Are (Timing): Still Present Location Of Pain: Throat Associated Symptoms: denies: Fever, Nausea, Vomiting, Other (Chest pain) Ear Symptoms: Bilateral: None Recent travel outside of the [place]: No Past Medical History Reviewed: Historical Data, Nursing Documentation, Vital Signs Vital Signs: Last Vital Signs Temp 100.4 F H 08/20/18 02:41 Pulse 95 H 08/20/18 02:41 Resp 20 08/20/18 02:41 BP 168/88 H 08/20/18 02:41 Pulse Ox 97 08/20/18 02:41 - Medical History PMH: Denies: Chronic Kidney Disease Family History: States: Unknown Family Hx - Social History Hx Alcohol Use: No Hx Substance Use: No - Immunization History Hx Tetanus Toxoid Vaccination: No Hx Influenza Vaccination: No Hx Pneumococcal Vaccination: No Review Of Systems Constitutional: Negative for: Fever, Chills Eyes: Negative for: Pain, Redness ENT: Positive for: Throat Pain, Throat Swelling. Negative for: Mouth Swelling Cardiovascular: Negative for: Chest Pain, Palpitations Respiratory: Negative for: Cough, Shortness of Breath Gastrointestinal: Negative for: Nausea, Vomiting, Diarrhea Genitourinary: Negative for: Dysuria, Hematuria Musculoskeletal: Negative for: Back Pain Skin: Negative for: Rash Neurological: Negative for: Weakness, Numbness, Dizziness Physical Exam - Physical Exam Appears: Well, Non-toxic, No Acute Distress Skin: Normal Color, Warm Head: Atraumatic, Normacephalic Eye(s): bilateral: Normal Inspection Ear(s): Bilateral: Normal Nose: Normal Oral Mucosa: Moist Throat: Normal (No swelling or injection), No Exudate Neck: Normal ROM, Supple Chest: Symmetrical, No Tenderness Cardiovascular: Rhythm Regular Respiratory: Normal Breath Sounds, No Accessory Muscle Use, Other (Normal inspiratory effort) Gastrointestinal/Abdominal: Soft, No Tenderness Neurological/Psych: Oriented x3, Normal Speech, Normal Cranial Nerves (Grossly i ntact) Gait: Steady ED Course And Treatment O2 Sat by Pulse Oximetry: 97 Medical Decision Making Medical Decision Making: this patient seems to be paranoid about her neighbor trying to send fumes into her apartment to harm her. when it was explained to her that having throat pain and a low grade fever is more likely to be from infectious causing she refused to give it any merit and insisted she knew her neighbor is the cause. she denies any SI or HI or any thoughts of harming herself. Disposition Counseled Patient/Family Regarding: Studies Performed, Diagnosis, Need For Followup - Disposition Disposition: HOME/ ROUTINE Disposition Time: 03:29 Condition: STABLE Instructions: Viral Pharyngitis (DC) Forms: [employer] (Surinamese), General Discharge Instructions - Clinical Impression Clinical Impression: Pharyngitis - PA / HR ADMINISTRATIVE ASSISTANT / Resident Statement MD/DO has reviewed & agrees with the documentation as recorded. - Scribe Statement The provider has reviewed the documentation as recorded by the Scribe Devon Monterroso All medical record entries made by the Scribe were at my direction and personally dictated by me. I have reviewed the chart and agree that the record accurately reflects my personal performance of the history, physical exam, medical decision making, and the department course for this patient. I have also personally directed, reviewed, and agree with the discharge instructions and disposition.
[2018-08-20 04:41] VITALS: BP 138/70; PULSE 82; TEMP 100
--- NOTE | 2018-08-20 11:40 | RAD ---
HISTORY: burning sensation with breathing COMPARISON: Chest x-ray performed 03/27/17 TECHNIQUE: Chest PA and lateral FINDINGS: LUNGS: Hyperinflation may be seen in the setting of COPD. Increased lucencies especially within the bilateral upper lung galindo compatible with underlying emphysema. No focal consolidation. Please note that chest x-ray has limited sensitivity for the detection of pulmonary masses. PLEURA: No significant pleural effusion identified. No definite pneumothorax . CARDIOVASCULAR: Heart size appears within normal limits. Dense atherosclerotic calcifications of the aorta. OSSEOUS STRUCTURES: Degenerative changes of the spine. VISUALIZED UPPER ABDOMEN: Unremarkable. OTHER FINDINGS: None. IMPRESSION: Correlate clinically for COPD/emphysema. No focal consolidation.
== END 2018-08-20 04:42 | disposition home or self-care (01) ==
LOC: C.ER 02:23
DX: J02.9 Acute pharyngitis, unspecified (principal)